=== PATIENT | female | born 1945 | race Caucasian/White ===

== ENCOUNTER 2017-03-25 03:44 | Inpatient (IN) | payer OTHER ==
[~2017-03-25] VITALS: Ht 165.1 cm; Wt 83.8 kg
[~2017-03-25 03:44] MED LIST: ACET-1257 PO; ATEN50TA8 PO; ATOR-22 PO; CALC500C3 PO; FERR325T51 PO; LEVO100T7 PO; MULT-506 PO; ORTHO WARFARIN NOMOGRAM; ULT50X PO
--- NOTE | 2017-03-25 04:35 | EMERGENCY ROOM VISIT NOTE ---
History Report prepared by Gilbert: Emmanuel Machado Under the Supervision of: Dr. Yusra Bailey D.O. First contact with patient: 03:53 Chief Complaint: SYNCOPE (NEAR SYNCOPE) Stated Complaint: NEAR SYNCOPE Nursing Triage Summary: PT presents with near syncopal episode. PT states this has happened before. PT became very tired at work and sat down, laid head down. PT was very dizzy states "I was close to passing out, so I sat down" Pt did not vomit, PT denies CP or SOB. PERRL, face symmetrical, PT speech clear and articulate. no distress noted. BP is 130 systolic at this time. History of Present Illness The patient is a 71 year old female who presents to the Emergency Room with complaints a near syncope episode prior to arrival . She has associated symptoms of lightheadedness and dizziness. She states the near syncope episode occurred while she was at work. Patient works at [employer]. She states she "started to see spots" and decided to sit down. She denies vomiting, nausea , or chills. She states that she felt fine all day today. Patient states she has a history of these symptoms. She states that 2 weeks ago she had a near syncope episode and the ambulance came. However, she was not transported to ER but instead worked the rest of her shift without any problems. In addition, she stated she had similar symptoms over the summer where she was diagnosed with dehydration and a UTI. She states she currently takes Synthroid and a blood pressure medication. She states she has taken the same blood pressure medication for the past 2 months. She states she has not taken any new medications recently. Patient states she occasionally feels PVCs in her chest. She states she has never been told that she has PVCs in her chest before. She denies any new neurological symptoms. She adds that her glucose levels were not taken during the near syncope episode. Patient states that she ate wings and chili fries 10 hours ago. She states that she usually eats apples and crackers while at work. She adds that she has stayed hydrated. Source of History: patient Onset: prior to arrival Position: other (Global) Associated Symptoms: No chills, No nausea, No vomiting Note: Patient has lightheadedness and dizziness. Review of Systems See HPI for pertinent positives & negatives. A total of 10 systems reviewed and were otherwise negative. Past Medical & Surgical Medical Problems: (1) Chronic anemia (2) CKD (chronic kidney disease) stage 3, GFR 30-59 ml/min (3) Degenerative joint disease (DJD) of hip (4) Dyslipidemia (5) HTN (hypertension) (6) Hypothyroidism Surgical Problems: (1) H/O arthroscopy of knee (2) History of total hysterectomy Family History No pertinent family history. Social History Smoking Status: Never Smoker Drug Use: none Occupation Status: employed Current/Historical Medications Scheduled Atorvastatin (Lipitor), 20 MG PO QAM Calcium Carbonate (Tums), 1 TAB PO PRN Ferrous Sulfate (Iron Supplement), 325 MG PO QAM Levothyroxine Sodium (Levothyroxine Sodium), 100 MCG PO QAM Lisinopril (Prinivil), 5 MG PO DAILY Multivitamin (Multivitamin), 1 TAB PO QAM Ranitidine (Zantac), 150 MG PO BID Scheduled PRN Tramadol HCl (Tramadol HCl), 50 MG PO Q4H PRN for Pain Allergies Coded Allergies: CI Pigment Blue 63 (Unverified Allergy, Severe, FACE SWELLING, 03/25/17) Duloxetine (Unverified Allergy, Severe, FACE SWELLING, 03/25/17) Diclofenac (Verified Adverse Reaction, Intermediate, 'affects my kidneys' per pt, 03/25/17) Physical Exam Vital Signs Date Time Temp Pulse Resp B/P (MAP) Pulse Ox O2 Delivery O2 Flow Rate FiO2 03/25/17 06:24 84 16 95 03/25/17 06:09 82 17 96 03/25/17 06:01 124/78 03/25/17 05:54 82 12 96 03/25/17 05:39 86 16 96 03/25/17 05:34 81 20 98 03/25/17 05:19 86 20 96 03/25/17 05:04 87 16 97 03/25/17 05:01 129/58 03/25/17 04:55 136/70 03/25/17 04:34 82 20 96 03/25/17 04:29 86 16 95 03/25/17 04:14 89 12 98 03/25/17 04:01 112/79 03/25/17 03:59 86 19 97 Room Air 03/25/17 03:55 98 Room Air 03/25/17 03:52 91 03/25/17 03:51 36.5 95 18 130/73 96 Room Air 03/25/17 03:49 130/73 Physical Exam HEENT: Head - normocephalic and atraumatic Pupils are equal, round, and reactive to light. Extraocular eye muscles are intact, and sclera are anicteric. Nose - moist nasal mucosa without discharge. Mouth - moist buccal mucosa. Oropharynx is nonerythematous and there is no tonsillar exudate or edema noted. Neck: Supple; no JVD, nuchal rigidity, cervical lymphadenopathy, or auscultated bruits. Heart: Regular rate and rhythm. There is a normal S1 and S2 with no murmurs, clicks, or gallops appreciated. Lungs: Clear to auscultation bilaterally with no wheezes, rales, or rhonchi. Abdomen: Soft, completely nontender, nondistended, with good bowel sounds. There are no palpable pulsatile masses or hepatosplenomegaly. There is no guarding, rigidity, or rebound noted. Extremities: No evidence of cyanosis, clubbing, or edema. There are easily palpable peripheral pulses. Skin: warm and dry with good turgor and no rashes. Medical Decision & Procedures ER Provider Diagnostic Interpretation: Radiology results as stated below per my review and the radiologist's interpretation: CT HEAD: No acute intracranial hemorrhage. No evidence of intracranial mass, extra-axial fluid collection, or acute territorial infarct. Mild white matter hypodensities, which are nonspecific but most likely related to chronic small vessel ischemic changes. Visualized paranasal sinuses and mastoid air cells are clear. Laboratory Results 03/25/17 03:30 03/25/17 03:30 Test 03/25/17 03:30 03/25/17 05:30 Red Blood Count 4.25 M/uL (4.2-5.4) Mean Corpuscular Volume 90.4 fL (80-100) Mean Corpuscular Hemoglobin 29.4 pg (25-34) Mean Corpuscular Hemoglobin Concent 32.6 g/dl (32-36) RDW Standard Deviation 44.9 fL (36.4-46.3) RDW Coefficient of Variation 13.6 % (11.5-14.5) Mean Platelet Volume 11.3 fL (7.4-10.4) Anion Gap 10.0 mmol/L (3-11) Est Creatinine Clear Calc Drug Dose 18.9 ml/min Estimated GFR () 18.4 Estimated GFR (Non- 15.9 BUN/Creatinine Ratio 13.0 (10-20) Calcium Level 9.7 mg/dl (8.5-10.1) Magnesium Level 2.2 mg/dl (1.8-2.4) Total Bilirubin 0.4 mg/dl (0.2-1) Direct Bilirubin 0.1 mg/dl (0-0.2) Aspartate Amino Transf (AST/SGOT) 24 U/L (15-37) Alanine Aminotransferase (ALT/SGPT) 33 U/L (12-78) Alkaline Phosphatase 105 U/L (45-117) Troponin I < 0.015 ng/ml (0-0.045) Total Protein 7.8 gm/dl (6.4-8.2) Albumin 4.1 gm/dl (3.4-5.0) Thyroid Stimulating Hormone (TSH) 0.456 uIu/ml (0.300-4.500) Urine Color DK YELLOW Urine Appearance CLOUDY (CLEAR) Urine pH 5.0 (4.5-7.5) Urine Specific [place] 1.027 (1.000-1.030) Urine Protein TRACE (NEG) Urine Glucose (UA) NEG (NEG) Urine Ketones TRACE (NEG) Urine Occult Blood NEG (NEG) Urine Nitrite NEG (NEG) Urine Bilirubin NEG (NEG) Urine Urobilinogen NEG (NEG) Urine Leukocyte Esterase MODERATE (NEG) Urine WBC (Auto) >30 /hpf (0-5) Urine RBC (Auto) 0-4 /hpf (0-4) Urine Hyaline Casts (Auto) >30 /lpf (0-5) Urine Epithelial Cells (Auto) >30 /lpf (0-5) Urine Bacteria (Auto) 2+ (NEG) Laboratory results per my review. ECG Indication: syncope Rate (beats per minute): 94 Rhythm: normal sinus Findings: PVC, no acute ischemic change Change: Patients electrocardiogram was interpreted by me. ED Course 0420: The patient was evaluated in room B8. A complete history and physical examination were performed. Nursing notes and previous electronic medical records were reviewed. IV lock was established and labs were drawn as above. A twelve-lead EKG was obtained as described above. 0530: Upon reevaluation, I discussed findings and results will be further evaluated. She verbalized agreement of the treatment plan. [facility] The patient will be evaluated for further management and care. Medical Decision The patient is a 71 year old female who presents to the ED with lightheadedness. Differential diagnosis includes cardiac dysrhythmia, renal failure, UTI, and intracranial process. Lab results show normal TSH, normal LFTs, troponin less 0.015, BUN = 37, creatinine = 2.8, white blood cell count 11.2, and stable H&H. The patient has now had 2 separate episodes of near syncope. The patient's creatinine has significantly increased consistent with acute kidney injury. [facility] and [facility] will evaluate for further care. Medication Reconcilliation Current Medication List: was personally reviewed by me Blood Pressure Screening Patient's blood pressure: Normal blood pressure Blood pressure disposition: Did not require urgent referral Consults Time Called: 0523 Consulting Physician: Dr. Hutchinson Returned Call: 0525 Discussed the patient's case. The patient will be evaluated for further management. Impression Primary Impression: Acute kidney injury Additional Impression: Near syncope Scribe Attestation The scribe's documentation has been prepared under my direction and personally reviewed by me in its entirety. I confirm that the note above accurately reflects all work, treatment, procedures, and medical decision making performed by me. Departure Information Dispostion Being Evaluated By Hospitalist Referrals Glen Bardales M.D. (PCP) Forms HOME CARE DOCUMENTATION FORM, IMPORTANT VISIT INFORMATION Patient Instructions My [facility] Problem Qualifiers
[2017-03-25 04:40] LABS: HEMATOCRIT 38.4 % (37-47); HEMOGLOBIN 12.5 g/dL (12.0-16.0); MEAN CELL VOLUME 90.4 fL (80-100); MEAN CORPUSCULAR HEMOGLOBIN 29.4 pg (25-34); MEAN CORPUSCULAR HGB CONC 32.6 g/dl (32-36); MEAN PLATELET VOLUME 11.3 fL (7.4-10.4); PLATELET COUNT 223 K/uL (130-400); RED CELL DISTRIBUTION WIDTH CV 13.6 % (11.5-14.5); RED CELL DISTRIBUTION WIDTH SD 44.9 fL (36.4-46.3); WHITE BLOOD COUNT 11.24 K/uL (4.8-10.8)
[2017-03-25 04:54] LABS: ALBUMIN 4.1 gm/dl (3.4-5.0); ALT/SGPT 33 U/L (12-78); BLOOD UREA NITROGEN 37 mg/dl (7-18); CALCIUM 9.7 mg/dl (8.5-10.1); CARBON DIOXIDE 25 mmol/L (21-32); CREATININE 2.83 mg/dl (0.60-1.20); GLUCOSE 119 mg/dl (70-99)
[2017-03-25 04:58] LABS: POTASSIUM 4.6 mmol/L (3.5-5.1); SODIUM 140 mmol/L (136-145)
[2017-03-25 04:59] LABS: ALKALINE PHOSPHATASE 105 U/L (45-117); TOTAL PROTEIN 7.8 gm/dl (6.4-8.2)
[2017-03-25 05:03] LABS: AST/SGOT 24 U/L (15-37)
[2017-03-25] MEDS ORDERED: LISI-729 PO (05:03)
[2017-03-25] MEDS ORDERED: ZNTT/150 PO (05:03)
--- NOTE | 2017-03-25 06:11 | DIAGNOSTIC IMAGING REPORT ---
HEAD WITHOUT CONTRAST (CT) CLINICAL HISTORY: 71 years-old Female with near syncope. Acute weakness TECHNIQUE: Multiple axial CT images of the head were obtained without contrast. A dose lowering technique was utilized adhering to the principles of ALARA. CT DOSE: 537.48 mGy.cm COMPARISON: None. FINDINGS: No acute intracranial hemorrhage, midline shift, intracranial mass, hydrocephalus, territorial ischemia or abnormal extra-axial collection. Ill-defined areas of low-attenuation within the periventricular white matter suggests chronic microvascular ischemic changes. The calvarium is intact. The paranasal sinuses, mastoid air cells, and middle ear cavities are clear. IMPRESSION: No acute intracranial abnormality. The above report was generated using voice recognition software. It may contain grammatical, syntax or spelling errors. Electronically signed by: Jeffrey Alanis M.D. 03/25/2017 6:10 AM Dictated Date/Time: 03/25/2017 6:02 AM
[2017-03-25] MEDS ORDERED: SODIUM CHLORIDE 0.9% 1000ML 1,000 ML IV STA (06:42)
--- NOTE | 2017-03-25 06:54 | DIAGNOSTIC IMAGING REPORT ---
CHEST ONE VIEW PORTABLE HISTORY: 71 years-old Female renal failure acute renal failure with near syncopal event COMPARISON: Chest radiograph 12/14/2016 TECHNIQUE: Portable AP view of the chest FINDINGS: Cardiomediastinal and hilar silhouettes are within normal limits. There is no pneumothorax, pleural effusion, focal airspace consolidation or overt pulmonary edema. Linear subsegmental atelectasis/scarring of the lateral left lung base. Bones of the chest appear grossly intact. Previously noted cholelithiasis not imaged. IMPRESSION: No acute process. The above report was generated using voice recognition software. It may contain grammatical, syntax or spelling errors. Electronically signed by: Jeffrey Alanis M.D. 03/25/2017 6:53 AM Dictated Date/Time: 03/25/2017 6:52 AM
[2017-03-25] MEDS ORDERED: CEFTRIAXONE SOD INJ 1 GM ADDVIAL IV STA (07:40)
[2017-03-25] MEDS ORDERED: ACETAMINOPHEN 325 MG TAB PO PRN (07:45)
[2017-03-25] MEDS ORDERED: TRAMADOL HCL 50 MG TAB PO PRN (07:45)
[2017-03-25] MEDS ORDERED: PROCHLORPERAZINE INJ 5 MG in SYRINGE 4 ML IV PRN (07:45)
[2017-03-25 08:55] VITALS: BP 135/81; PULSE 87; TEMP 36.5; O2SAT 96; O2SAT 97; Ht 165.1 cm; Wt 83.8 kg
[2017-03-25] MEDS: CEFTRIAXONE SOD INJ 1 GM in DEXTROSE 5% ADD-VANTAGE 50ML 50 ML IV SCH (10:57)
--- NOTE | 2017-03-25 11:18 | HISTORY & PHYSICAL EXAMINATION ---
DATE OF ADMISSION: 03/25/2017 PRIMARY CARE DOCTOR: Dr. Bardales CHIEF COMPLAINT: Near syncope. HISTORY OF PRESENT ILLNESS: History obtained from patient and records. Medical history is significant for hypertension, chronic anemia (baseline hemoglobin of 12), CKD with baseline creatinine of 1.3-1.4 as per records, hyperlipidemia, hypothyroidism, and arthritis. Recent confinement in 2015 for a right hip surgery. 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 Broke into sweats. Blood pressure initially 60/40 and later 90/50. Refused ER admission. Patient was to follow up with her PCP. She was at work again last night when episode reccurred. Denies chest pain, shortness of breath. Denies bladder discomfort. No fever, no chills. Patient thinks she drinks enough water. MEDICAL HISTORY: As above. SURGERIES: She has had knee surgery, hysterectomy, and hip surgery. HOME MEDICATIONS: Include lisinopril, Lipitor, levothyroxine, Tylenol. ALLERGIES: CYMBALTA AND DICLOFENAC. FAMILY HISTORY: Heart disease, diabetes, stroke PERSONAL AND SOCIAL HISTORY: Nonsmoker. No chronic intake of alcoholic beverages. STEAM POWERPLANT SUPERVISOR . REVIEW OF SYSTEMS: As per HPI, all 10 systems reviewed, all other ROS negative. PHYSICAL EXAMINATION: VITAL SIGNS: Blood pressure was noted to be 124/70, pulse rate 82, RR 12, temperature 36.5, and sats 98% on room air. Orthostatic vitals were abnormal. GENERAL: Noted to be pleasant, no respiratory distress. Looks younger for stated age. Obese. SKIN: Pallor and warm. HEENT: [place] palpebral conjunctivae. Dry mucosa. No ptosis. NECK: Supple, short, and nontender. LUNGS: Clear to auscultation. Nontender. HEART: RRR. No murmur. ABDOMEN: Some distention. Nontender. EXTREMITIES: No LE edema. No gross deformities, no tenderness NEUROLOGIC: Coherent. No gross focality. LABS: Hemoglobin was noted to be 12.5, WBC 11, platelets noted to be 223. Sodium 140, potassium 4.6, chloride 105, CO2 of 25, BUN 37, creatinine 2.8 glucose 119. Troponin normal. UA, trace ketones noted. WBC est positive, epithelial cells CT head, no acute pathology. Chest x-ray showed no acute process. EKG as per my interpretation rate 95, NSR, LVH, PVCs ASSESSMENT: 1. ARF on CRI Clinical dehydration Possible UTI (hx similar UTI symptoms in the past without usual symptoms as per patient), patient not septic. 2. Near syncope 2 to above, orthostasis 3. Hypertension, blood pressure on the lower side. 4. Chronic anemia secondary to CKD, hemoglobin better than baseline Likely from hemoconcentration. PLAN: F Monitor creatinine response to IV fluids Appropriate to hold home ACEinhibitor for now. Renal ultrasound, Nephrology consult (patient known to Dr. De La Cruz) if kidney function does not improve with initial intervention. Follow urine CS, IV Ceftriaxone for now. DVT prophylaxis, Heparin subQ. Full code. MTDD
[2017-03-25 12:37] LABS: INR 0.9 (0.9-1.1)
[2017-03-25] MEDS ORDERED: SODIUM CHLORIDE 0.9% 1000ML 1,000 ML IV SCH ×2 (13:00→16:45)
[2017-03-25 14:34] VITALS: BP 115/72; PULSE 90; TEMP 37; O2SAT 95
[2017-03-25] MEDS: ATORVASTATIN 20 MG TAB PO SCH (15:26)
[2017-03-25] MEDS: FERROUS SULFATE 325 MG TAB PO SCH (15:26)
[2017-03-25] MEDS: MULTIVITAMIN TAB PO SCH (15:26)
[2017-03-25] MEDS: LEVOTHYROXINE 100 MCG TAB PO SCH (15:27)
[2017-03-25] MEDS: RANITIDINE HCL 150 MG TAB PO SCH (15:27)
[2017-03-25] MEDS: HEPARIN SOD 5000 UNIT/0.5 ML CARP SQ SCH ×2 (15:35→22:00)
--- NOTE | 2017-03-25 15:48 | Progress Note ---
Medicine Progress Note Date & Time of Visit: Mar 25, 2017 at 10:21. Subjective Pt was seen and examined Lying in bed with no distress Pt said that she feels fine She wanted to go home today Denies any chest pain, palpitation, dizziness and SOB Objective Last 8 Hrs Date Time Temp Pulse Resp B/P (MAP) Pulse Ox O2 Delivery O2 Flow Rate FiO2 03/25/17 14:34 37.0 90 16 115/72 (86) 95 Room Air 03/25/17 08:55 36.5 87 16 135/81 (99) 96 Room Air 03/25/17 08:55 36.5 87 16 135/81 97 Room Air 03/25/17 08:20 86 16 162/82 97 03/25/17 08:17 86 16 162/82 97 Room Air Physical Exam: General- No acute distress Head- atraumatic Eyes- PERRL, EOMI ENT- oropharynx clear Neck- supple, no JVD Lungs- No wheezing Heart- regular rhythm, No murmur Abdomen- normal bowel sounds, soft Extremities- no pretibial edema, no calf tenderness Neuro- alert, oriented x 3; PERRL, EOMI; no facial palsy Skin- warm & dry Laboratory Results: Last 24 Hours Test 03/25/17 03:30 03/25/17 05:30 03/25/17 12:17 White Blood Count 11.24 K/uL Red Blood Count 4.25 M/uL Hemoglobin 12.5 g/dL Hematocrit 38.4 % Mean Corpuscular Volume 90.4 fL Mean Corpuscular Hemoglobin 29.4 pg Mean Corpuscular Hemoglobin Concent 32.6 g/dl RDW Standard Deviation 44.9 fL RDW Coefficient of Variation 13.6 % Platelet Count 223 K/uL Mean Platelet Volume 11.3 fL Sodium Level 140 mmol/L Potassium Level 4.6 mmol/L Chloride Level 105 mmol/L Carbon Dioxide Level 25 mmol/L Anion Gap 10.0 mmol/L Blood Urea Nitrogen 37 mg/dl Creatinine 2.83 mg/dl Est Creatinine Clear Calc Drug Dose 18.9 ml/min Estimated GFR () 18.4 Estimated GFR (Non- 15.9 BUN/Creatinine Ratio 13.0 Random Glucose 119 mg/dl Calcium Level 9.7 mg/dl Magnesium Level 2.2 mg/dl Total Bilirubin 0.4 mg/dl Direct Bilirubin 0.1 mg/dl Aspartate Amino Transf (AST/SGOT) 24 U/L Alanine Aminotransferase (ALT/SGPT) 33 U/L Alkaline Phosphatase 105 U/L Total Creatine Kinase 33 U/L Troponin I < 0.015 ng/ml Total Protein 7.8 gm/dl Albumin 4.1 gm/dl Thyroid Stimulating Hormone (TSH) 0.456 uIu/ml Urine Color DK YELLOW Urine Appearance CLOUDY Urine pH 5.0 Urine Specific [place] 1.027 Urine Protein TRACE Urine Glucose (UA) NEG Urine Ketones TRACE Urine Occult Blood NEG Urine Nitrite NEG Urine Bilirubin NEG Urine Urobilinogen NEG Urine Leukocyte Esterase MODERATE Urine WBC (Auto) >30 /hpf Urine RBC (Auto) 0-4 /hpf Urine Hyaline Casts (Auto) >30 /lpf Urine Epithelial Cells (Auto) >30 /lpf Urine Bacteria (Auto) 2+ Prothrombin Time 9.8 SECONDS Prothromb Time International Ratio 0.9 Date/Time Source Procedure Growth Status 03/25/17 05:30 Urine , Clean Catch Urine Culture Pending Received Assessment & Plan Recurrent Near Syncope Possible related to Orthostatic hypotension vs dehydration CT head showed no acute intracranial abnormality. EKG showed sinus rhythm with PVC troponin on admission negative Denies any symptoms Received 2 liter NS Lisinopril on hold PT/OT Will get an echo in am Dobutamine stress echo was negative for inducible ischemia back in 2012 Acute kidney injury on CKD stage 3 Creatine was 1.4 on 01/18 Creatine on admission 2.2 Hold lisinopril will continue gentle hydration Check BMP in am Abnormal UA Denies any urinary symptoms WBC mild elevated Starting on Rocephin urine cx pending Hypothyroidism TSH WNL Continue levothyroxine DVT px on Heparin subq CODE STATUS FULL CODE Current Inpatient Medications: Current Inpatient Medications Medications (Trade) Dose Ordered Sig/Awa Route Start Time Stop Time Status Last Admin Dose Admin Heparin Sodium (Porcine) (Heparin Sq 5000 Unit/0.5ml) 5,000 unit Q8 SQ 03/25/17 14:00 04/24/17 13:59 Acetaminophen (Tylenol Tab) 650 mg Q4H PRN PO 03/25/17 07:45 04/24/17 07:44 Tramadol HCl (Ultram Tab) 25 mg Q6H PRN PO 03/25/17 07:45 04/24/17 07:44 Prochlorperazine Edisylate 5 mg/ Syringe 5 ml @ 5 mls/min Q6H PRN IV 03/25/17 07:45 04/24/17 07:44 Ceftriaxone Sodium 1 gm/ Dextrose 50 ml @ 100 mls/hr DAILY@0800 IV 03/25/17 09:00 04/04/17 07:59 03/25/17 10:57 100 MLS/HR Atorvastatin Calcium (Lipitor Tab) 20 mg QAM PO 03/25/17 09:00 04/24/17 08:59 Levothyroxine Sodium (Synthroid Tab) 100 mcg DAILYBB PO 03/25/17 09:00 04/24/17 08:59 Multivitamins (Multivitamin Tab) 1 tab QAM PO 03/25/17 09:00 04/24/17 08:59 Ranitidine HCl (zANTac TAB) 150 mg DAILY PO 03/25/17 09:00 04/24/17 08:59 Ferrous Sulfate (Feosol Tab) 325 mg QAM PO 03/25/17 09:00 04/24/17 08:59 Sodium Chloride 1,000 ml @ 100 mls/hr Q10H IV 03/25/17 13:00 03/26/17 12:59 03/25/17 13:35 100 MLS/HR
[2017-03-25 20:00] VITALS: O2SAT 95
[2017-03-25 22:55] VITALS: BP 125/76; PULSE 87; TEMP 36.6; O2SAT 97
[2017-03-26 00:54] VITALS: O2SAT 95
[2017-03-26] MEDS: HEPARIN SOD 5000 UNIT/0.5 ML CARP SQ SCH ×2 (06:00→13:16)
[2017-03-26] MEDS: LEVOTHYROXINE 100 MCG TAB PO SCH (06:19)
[2017-03-26 08:14] LABS: BASO % 0.5 %; BASO ABS # 0.03 K/uL (0-0.2); EOS % 3.4 %; EOS ABS # 0.19 K/uL (0-0.5); HEMATOCRIT 35.6 % (37-47); HEMOGLOBIN 11.4 g/dL (12.0-16.0); LYMPH % 49.5 %; LYMPH ABS # 2.75 K/uL (1.2-3.4); MEAN CORPUSCULAR HEMOGLOBIN 29.2 pg (25-34); MEAN PLATELET VOLUME 10.8 fL (7.4-10.4); MONO % 7.2 %; NEUT % 39.4 %; NEUT ABS # 2.19 K/uL (1.4-6.5); PLATELET COUNT 179 K/uL (130-400); RED CELL DISTRIBUTION WIDTH CV 13.7 % (11.5-14.5); RED CELL DISTRIBUTION WIDTH SD 45.5 fL (36.4-46.3); WHITE BLOOD COUNT 5.56 K/uL (4.8-10.8)
[2017-03-26 08:17] VITALS: BP 134/79; PULSE 75; TEMP 36.5; O2SAT 96
[2017-03-26 08:47] LABS: CALCIUM 9.2 mg/dl (8.5-10.1); CREATININE 1.09 mg/dl (0.60-1.20); POTASSIUM 4.4 mmol/L (3.5-5.1)
[2017-03-26] MEDS: RANITIDINE HCL 150 MG TAB PO SCH (08:56)
[2017-03-26] MEDS: MULTIVITAMIN TAB PO SCH (08:56)
[2017-03-26] MEDS: CEFTRIAXONE SOD INJ 1 GM in DEXTROSE 5% ADD-VANTAGE 50ML 50 ML IV SCH (08:56)
[2017-03-26] MEDS: ATORVASTATIN 20 MG TAB PO SCH (08:56)
[2017-03-26] MEDS: FERROUS SULFATE 325 MG TAB PO SCH (08:56)
--- NOTE | 2017-03-26 10:50 | ECHOCARDIOGRAM REPORT ---
*NOTICE TO RECEIVING CONSTITUTION PARTY AGENCY This information is strictly Confidential and protected under [place] law. [place] law prohibits you from making any further disclosure of this information unless further disclosure is expressly permitted by the written consent of the person to whom it pertains or is authorized by law. A general authorization for the release of medical or other information is not sufficient for this purpose. Hospital accepts no responsibility if the information is made available to any other person, INCLUDING THE PATIENT. Interpretation Summary * Name: RADHA GREEN Study Date: 03/26/2017 06:19 AM BP: 125/76 mmHg * Patient Location: .[id number]\1 HR: 87 * : 1945 (M/d/yyyy) Gender: Female Height: 65 in * Age: 71 yrs Ethnicity: [place] Weight: 184 lb * Ordering Physician: Ge Foreman * Referring Physician: Self, Referred * Performed By: Beni Saucedo RCS * * Reason For Study: Recurrent Near Syncope * BSA: 1.9 m2 * -- Conclusions -- * Small, underfilled, LV chamber with mild concentric LVH. * Hyperdynamic LV systolic function, EF >70%. * No segmental left ventricular wall motion abnormalities are noted. * Grade I diastolic dysfunction. * Mild tricuspid regurgitation. Procedure Details * A complete two-dimensional transthoracic echocardiogram was performed (2D, M-mode, Doppler and color flow Doppler). Left Ventricle * The left ventricular cavity is small. * There is mild concentric left ventricular hypertrophy. * Ejection Fraction = >70 %. * The left ventricle is hyperdynamic. * No segmental left ventricular wall motion abnormalities are noted. * The left ventricular wall motion is normal. Right Ventricle * The right ventricular cavity size is normal (basal dimension <4.2 cm in right ventricular apical 4-chamber view). * The right ventricular systolic function is normal as assessed by tricuspid annular plane systolic excursion (TAPSE) (normal >1.5 cm). Atria * The left atrial size is normal. * Right atrial size is normal. * No ASD detected; PFO is not assessed. Mitral Valve * The mitral valve is normal in structure and function. Tricuspid Valve * The tricuspid valve anatomy is normal. * There is no tricuspid stenosis. * There is mild tricuspid regurgitation. Aortic Valve * The aortic valve is normal in structure and function. Pulmonic Valve * The pulmonary valve is not well seen, but the Doppler examination is normal without significant regurgitation or stenosis. Great Vessels * The aortic root and proximal ascending aorta are normal sized. Pericardium/Pleural * There is no pericardial effusion. Left Ventricular Diastolic Function * Grade I diastolic dysfunction, (abnormal relaxation pattern). MMode 2D Measurements and Calculations IVSd 1.1 cm IVSs 1.6 cm LVIDd 3.9 cm LVIDs 2.5 cm LVPWd 1.1 cm LVPWs 1.7 cm IVS/LVPW 0.93 FS 36.1 % EDV(Teich) 65.6 ml ESV(Teich) 22.0 ml EF(Teich) 66.5 % EDV(cubed) 58.9 ml ESV(cubed) 15.4 ml EF(cubed) 74.0 % % IVS thick 49.1 % % LVPW thick 50.4 % LV mass(C)d 139.0 grams LV mass(C)dI 72.8 grams/m\S\2 LV mass(C)s 147.6 grams LV mass(C)sI 77.3 grams/m\S\2 SV(Teich) 43.6 ml SI(Teich) 22.8 ml/m\S\2 SV(cubed) 43.6 ml SI(cubed) 22.8 ml/m\S\2 asc Aorta Diam 3.3 cm EDV(MOD-sp4) 112.6 ml ESV(MOD-sp4) 44.2 ml EF(MOD-sp4) 60.8 % EDV(MOD-sp2) 89.6 ml ESV(MOD-sp2) 37.0 ml EF(MOD-sp2) 58.7 % SV(MOD-sp4) 68.4 ml SI(MOD-sp4) 35.8 ml/m\S\2 SV(MOD-sp2) 52.6 ml SI(MOD-sp2) 27.5 ml/m\S\2 Doppler Measurements and Calculations MV E max andi 84.2 cm/sec MV A max andi 84.9 cm/sec MV E/A 0.99 MV P1/2t max andi 97.1 cm/sec MV P1/2t 63.4 msec MVA(P1/2t) 3.5 cm\S\2 MV dec slope 448.2 cm/sec\S\2 MV dec time 0.23 sec Ao V2 max 108.1 cm/sec Ao max PG 4.7 mmHg Ao max PG (full) 1.4 mmHg LV V1 max PG 3.3 mmHg LV V1 max 90.7 cm/sec PA V2 max 88.6 cm/sec PA max PG 3.1 mmHg TR max andi 228.1 cm/sec
[2017-03-26 11:57] VITALS: BP 118/74; PULSE 83; TEMP 36.8; O2SAT 94
[2017-03-26 13:16] VITALS: BP 118/74; PULSE 83; TEMP 36.8; O2SAT 94
--- NOTE | 2017-03-26 14:41 | Progress Note ---
Medicine Progress Note Date & Time of Visit: Mar 26, 2017 at 14:28. Subjective Pt was seen and examined Lying in bed with no distress Pt said that she feels fine Denies any dizziness, palpitation, dizziness and SOB Objective Last 8 Hrs Date Time Temp Pulse Resp B/P (MAP) Pulse Ox O2 Delivery O2 Flow Rate FiO2 03/26/17 13:16 36.8 83 18 94 Room Air 03/26/17 11:57 36.8 83 18 118/74 (89) 94 Room Air 03/26/17 08:17 36.5 75 16 134/79 (97) 96 Room Air 03/26/17 08:00 Room Air Physical Exam: General- No acute distress Head- atraumatic Eyes- PERRL, EOMI ENT- oropharynx clear Neck- supple, no JVD Lungs- No wheezing Heart- regular rhythm, No murmur Abdomen- normal bowel sounds, soft Extremities- no pretibial edema, no calf tenderness Neuro- alert, oriented x 3; PERRL, EOMI; no facial palsy Skin- warm & dry Laboratory Results: Last 24 Hours Test 03/26/17 07:50 White Blood Count 5.56 K/uL Red Blood Count 3.91 M/uL Hemoglobin 11.4 g/dL Hematocrit 35.6 % Mean Corpuscular Volume 91.0 fL Mean Corpuscular Hemoglobin 29.2 pg Mean Corpuscular Hemoglobin Concent 32.0 g/dl Platelet Count 179 K/uL Mean Platelet Volume 10.8 fL Neutrophils (%) (Auto) 39.4 % Lymphocytes (%) (Auto) 49.5 % Monocytes (%) (Auto) 7.2 % Eosinophils (%) (Auto) 3.4 % Basophils (%) (Auto) 0.5 % Neutrophils # (Auto) 2.19 K/uL Lymphocytes # (Auto) 2.75 K/uL Monocytes # (Auto) 0.40 K/uL Eosinophils # (Auto) 0.19 K/uL Basophils # (Auto) 0.03 K/uL RDW Standard Deviation 45.5 fL RDW Coefficient of Variation 13.7 % Immature Granulocyte % (Auto) 0.0 % Immature Granulocyte # (Auto) 0.00 K/uL Sodium Level 141 mmol/L Potassium Level 4.4 mmol/L Chloride Level 109 mmol/L Carbon Dioxide Level 24 mmol/L Anion Gap 8.0 mmol/L Blood Urea Nitrogen 24 mg/dl Creatinine 1.09 mg/dl Est Creatinine Clear Calc Drug Dose 49.1 ml/min Estimated GFR () 58.3 Estimated GFR (Non- 50.3 BUN/Creatinine Ratio 21.7 Random Glucose 87 mg/dl Calcium Level 9.2 mg/dl Assessment & Plan Recurrent Near Syncope Possible related to Orthostatic hypotension vs dehydration CT head showed no acute intracranial abnormality. EKG showed sinus rhythm with PVC troponin on admission negative Denies any symptoms Received 2 liter NS Lisinopril on hold PT/OT Dobutamine stress echo was negative for inducible ischemia back in 2012 ECHO done -- Conclusions -- * Small, underfilled, LV chamber with mild concentric LVH. * Hyperdynamic LV systolic function, EF >70%. * No segmental left ventricular wall motion abnormalities are noted. * Grade I diastolic dysfunction. * Mild tricuspid regurgitation. Acute kidney injury on CKD stage 3 Creatine was 1.4 on 01/18 Creatine on admission 2.2 Hold lisinopril will continue gentle hydration Check BMP in am UTI Denies any urinary symptoms WBC trending down WNL On Rocephin day 2 urine cx positive for alpha strep. not enterococcus > 120084 CFU Will do keflex for 3 more days Hypothyroidism TSH WNL Continue levothyroxine DVT px on Heparin subq CODE STATUS FULL CODE Disposition Discharge home today Follow up with Dr. Bardales on 04/02 @ 11:05 Current Inpatient Medications: Current Inpatient Medications Medications (Trade) Dose Ordered Sig/Awa Route Start Time Stop Time Status Last Admin Dose Admin Heparin Sodium (Porcine) (Heparin Sq 5000 Unit/0.5ml) 5,000 unit Q8 SQ 03/25/17 14:00 04/24/17 13:59 03/25/17 15:35 5,000 UNIT Acetaminophen (Tylenol Tab) 650 mg Q4H PRN PO 03/25/17 07:45 04/24/17 07:44 Tramadol HCl (Ultram Tab) 25 mg Q6H PRN PO 03/25/17 07:45 04/24/17 07:44 03/26/17 06:19 25 MG Prochlorperazine Edisylate 5 mg/ Syringe 5 ml @ 5 mls/min Q6H PRN IV 03/25/17 07:45 04/24/17 07:44 Ceftriaxone Sodium 1 gm/ Dextrose 50 ml @ 100 mls/hr DAILY@0800 IV 03/25/17 09:00 04/04/17 07:59 03/26/17 08:56 100 MLS/HR Atorvastatin Calcium (Lipitor Tab) 20 mg QAM PO 03/25/17 09:00 04/24/17 08:59 03/26/17 08:56 20 MG Levothyroxine Sodium (Synthroid Tab) 100 mcg DAILYBB PO 03/25/17 09:00 04/24/17 08:59 03/26/17 06:19 100 MCG Multivitamins (Multivitamin Tab) 1 tab QAM PO 03/25/17 09:00 04/24/17 08:59 03/26/17 08:56 1 TAB Ranitidine HCl (zANTac TAB) 150 mg DAILY PO 03/25/17 09:00 04/24/17 08:59 03/26/17 08:56 150 MG Ferrous Sulfate (Feosol Tab) 325 mg QAM PO 03/25/17 09:00 04/24/17 08:59 03/26/17 08:56 325 MG
[2017-03-26] MEDS ORDERED: CEPH-571 PO ×2 (14:43→14:51)
--- NOTE | 2017-03-26 14:51 | Discharge Instructions ---
Discharge Instructions Date of Service Mar 26, 2017. Admission Reason for Admission: ARF Discharge Discharge Diagnosis / Problem: Near Syncope, Acute kidney injury on CKD stage 3 , UTI Discharge Goals Goal(s): Decrease discomfort, Improve function, Improve disease control Activity Recommendations Activity Limitations: resume your previous activity (as tolerated) . Instructions / Follow-Up Instructions / Follow-Up Follow up with Dr. Bardales on 04/02 @ 11:05 Hold lisinopril for now, if needs to restart please consider to lower the dose to half and monitor renal function Avoid medication that can damage your kidney such as NSAIDs (Motrin, Aleve, Naproxen, Ibuprofen,..) Monitor blood pressure Complete course of Keflex Current Hospital Diet Patient's current hospital diet: AHA Diet (Heart Healthy) Discharge Diet Recommended Diet: AHA Diet (Heart Healthy) Pending Studies Studies pending at discharge: no Medical Emergencies . Who to Call and When: Medical Emergencies: If at any time you feel your situation is an emergency, please call 911 immediately. . Non-Emergent Contact Non-Emergency issues call your: Primary Care Provider Call Non-Emergent contact if: you have a fever, you have any medication questions . . "Provider Documentation" section prepared by Ge Foreman. . VTE Core Measure Inpt VTE Proph given/why not?: Unfractionated heparin SQ
== END 2017-03-26 15:35 | disposition home or self-care (01) | DRG 683 ==
LOC: EDBD 03:44 → C.EDB 03:45 → C.MS2W 07:08 → ENRESERV 07:43 → C.MS4W 13:12 → C.MS2W 13:25
PROVIDERS: ADMIT Internal Medicine; ATTEND Internal Medicine
DX: N17.9 Acute kidney failure, unspecified (principal); N39.0 Urinary tract infection, site not specified; I95.1 Orthostatic hypotension; E86.0 Dehydration; B95.4 Other streptococcus as the cause of diseases classified elsewhere; I12.9 Hypertensive chronic kidney disease with stage 1 through stage 4 chronic kidney disease, or unspecified chronic kidney disease; N18.3 Chronic kidney disease, stage 3 (moderate); E78.5 Hyperlipidemia, unspecified; E03.9 Hypothyroidism, unspecified; D63.1 Anemia in chronic kidney disease; Z51.81 Encounter for therapeutic drug level monitoring; Z79.899 Other long term (current) drug therapy; Z83.3 Family history of diabetes mellitus; Z82.3 Family history of stroke

== ENCOUNTER 2018-03-27 12:12 | Inpatient (IN) ==
[2018-03-27 13:28] LABS: Basophils # (auto) 0.02 K/uL (0-0.2); Basophils % (auto) 0.2 %; Hematocrit (blood only) 32.2 % (37-47); Hemoglobin 10.1 g/dL (12.0-16.0); Immature Granulocytes # (auto) 0.02 K/uL (0.00-0.02); Immature Granulocytes % (auto) 0.2 %; Lymphocytes % (auto) 14.6 %; Mean Corpuscular Hgb Conc 31.4 g/dL (32-36); Monocytes # (auto) 0.92 K/uL (0.11-0.59); Platelet Count 150 K/uL (130-400); RDW Coefficient of Variation 13.8 % (11.5-14.5); RDW Standard Deviation 44.1 fL (36.4-46.3); White Blood Count 10.26 K/uL (4.8-10.8)
[2018-03-27 13:44] LABS: Albumin Level 3.6 gm/dl (3.4-5.0); Aspartate Aminotransferase 64 U/L (15-37); BUN Creatinine Ratio 21.9 (10-20); Blood Urea Nitrogen 37 mg/dl (7-18); Calcium 9.3 mg/dl (8.5-10.1); Carbon Dioxide 22 mmol/L (21-32); Chloride 98 mmol/L (98-107); Est GFR (African American) 33.6; Glucose 110 mg/dl (70-99); Sodium 130 mmol/L (136-145)
[2018-03-27] MEDS ORDERED: MoRPHine SULFATE 4 MG/ML 1 ML CARP\\VIAL IV STA (13:45)
[2018-03-27] MEDS ORDERED: SODIUM CHLORIDE 0.9% 1000ML 1,000 ML IV ONE (13:45)
[2018-03-27] MEDS ORDERED: ACETAMINOPHEN 1,000 MG/100 ML VIAL IV ONE (13:45)
[2018-03-27 13:47] LABS: Alanine Aminotransferase 62 U/L (12-78); Albumin Globulin Ratio 0.9 (0.9-2); Alkaline Phosphatase 146 U/L (45-117); Bilirubin,Total 1.2 mg/dl (0.2-1); Globulin 4.2 gm/dl (2.5-4.0); Total Protein 7.8 gm/dl (6.4-8.2)
[2018-03-27 13:53] LABS: INR 1.1 (0.9-1.1); Partial Thromboplastin Ratio 0.9; Prothrombin Time 10.6 Seconds (9.0-12.0)
[2018-03-27] MEDS ORDERED: HEPARIN SOD 5,000 UNIT/0.5 ML VIAL ONE (16:58)
[2018-03-27] MEDS ORDERED: HEPARIN 25000 UNIT/500 ML D5W IV ONE (16:58)
--- NOTE | 2018-03-27 17:05 | History & Physical Report ---
Date of Service March 27, 2018 Assessment & Plan (1) DVT (deep venous thrombosis): Pt with c/o L leg edema and discomfort left groin with walking x 2 days. Hx L TKA on 01/17/[address] Sal. She was on xarelto 10mg po daily for DVT prophylaxis and appears to have been discharged on xarelto x 14 days however pt states never took after discharge from hospital LLE VENOUS DOPPLER: Extensive occlusive acute deep venous thrombosis extending throughout the left lower extremity extending from the calf veins to at least the common femoral vein In ER pt afebrile, P: 84, R: 20, BP: 115/67, 95% on RA. WBC: 10, Hgb: 10, Plt: 150, BUN: 37, Cr: 1.7 Was given Tylenol 1 gm IV, 1L NSS Heparin IV. Reported ER consulted vascular who felt pt not thrombectomy candidate -heparin IV -monitor -consider possible newer anticoagulation med for discharge -cbc, bmp (2) Hyponatremia: Na: 130. Was given 1L NSS in ER -IVF -monitor electrolytes (3) CKD (chronic kidney disease) stage 3, GFR 30-59 ml/min: Cr: 1.7. baseline 1.1-1.4 -IVF -monitor renal functions -avoid nephrotoxic agents when possible (4) HTN (hypertension): Stable -not on meds currently (5) Dyslipidemia: -continue statin (6) Hypothyroidism: -continue levothyroxine (7) Chronic anemia: Hgb: 10. Was 10.3 on discharge 01/18/18 No active bleeding -monitor H&H (8) Status post left knee replacement: Hx L TKA on 01/17/18. -continue tylenol and percocet prn pain (9) GERD (gastroesophageal reflux disease): -continue TUMS prn indigestion DVT Prophylaxis -Pt with current DVT prior to hospital admission Full code as per discussion with pt Follows with Dr Bardales for routine care Pt was seen with Dr Villalpando. See addendum History of Present Illness Chief Complaint: L Leg edema Primary Care Provider: Glen Bardales MD Pt is 72 y/o F with PMH HTN, HLD, CKD III, hypothyroidism, GERD presented to ER with c/o left leg edema x 2 days. Pt with hx L TKA on 01/17/[address] Sal. She was on xarelto 10mg po daily and appears to have been discharged on xarelto x 14 days however pt states never took after discharge from hospital and is unsure if had Rx. Reports 2 days ago noticed discomfort to L upper inner thigh with walking and noticed edema of entire left leg. Had out patient venous doppler and was referred to ER for extensive occlusive DVT L calf veins to common femoral. Pt with hx superficial DVT after previous R hip replacement. She reports that she has been participating in PT 3 times a week and doing stationary exercise bike at home. Denies recent travel. Denies fever/chills, diaphoresis, N/V/D/C, HAWK, dizziness, syncope, vision changes, neck pain, CP, SOB , orthopnea, palpitations, cough, sore throat, choking, otalgia, rhinorrhea, abdominal pain, paresthesias, extremity weakness, rashes, urinary symptoms. Allergies Allergy/AdvReac Type Severity Reaction Status Date / Time blue dye Allergy Severe FACE Unverified 03/27/18 13:25 SWELLING duloxetine Allergy Severe FACE Verified 03/27/18 13:25 SWELLING capsaicin AdvReac Intermediate 'affects Verified 03/27/18 13:25 my kidneys' per pt diclofenac AdvReac Intermediate 'affects Verified 03/27/18 13:25 my kidneys' per pt Diclopak AdvReac Intermediate 'affects Verified 03/25/17 05:05 my kidneys' per pt Home Medications Home Medications Medication Instructions Recorded Confirmed Type acetaminophen [Tylenol Extra 1,000 mg PO UD PRN 12/21/17 03/27/18 History Strength] atorvastatin 20 mg PO QAM 12/21/17 03/27/18 History calcium carbonate [Tums] 200 mg PO QID PRN 12/21/17 03/27/18 History ferrous sulfate 325 mg PO QAM 12/21/17 03/27/18 History levothyroxine 100 mcg PO QAM 12/21/17 03/27/18 History multivitamin 1 cap PO QAM 12/21/17 03/27/18 History oxycodone-acetaminophen [Percocet] 1 tab PO Q6H PRN 03/27/18 03/27/18 History Past Med/Surg History Medical History GERD (gastroesophageal reflux disease) (Chronic) CONTROLLED Osteoarthritis (Chronic) CKD (chronic kidney disease) stage 3, GFR 30-59 ml/min (Chronic) Chronic anemia (Chronic) Hypothyroidism (Chronic) HTN (hypertension) (Chronic) Dyslipidemia (Chronic) History of superficial phlebitis (Resolved) S/P BRIANNE (2016) Obesity Surgical History History of total hip arthroplasty (Resolved) RIGHT BRIANNE= 01/13/2016= SAB X1 AT [facility] History of hysterectomy (Resolved) History of colonoscopy (Resolved) History of esophagogastroduodenoscopy (EGD) (Resolved) History of arthroscopy (Resolved) RIGHT KNEE Status post left knee replacement (Resolved) History of total hysterectomy (Resolved) H/O arthroscopy of knee (Resolved) "09/2002 Dr. Hobson" Family History Other History of superficial phlebitis Social History Current Living Situation: Alone Feels Safe at Home: Yes Smoking Status: Never smoker Second Hand Exposure: No Hx Alcohol Use: Yes Alcohol type: other Alcohol Intake Frequency: a few times a month Hx Substance Use: No Beliefs That Will Affect Care: None Preferred Language: Mongolian Visual Impairment: No Limitations Review of Systems All systems reviewed & are unremarkable except as noted in HPI & below Physical Exam 2 Vital Signs (Past 24 Hours): Last Vital Signs Temp 36.7 C 03/27/18 12:17 Pulse 81 03/27/18 13:21 Resp 20 03/27/18 12:17 BP 115/67 03/27/18 12:17 Pulse Ox 96 03/27/18 13:21 Physical Exam: General: no distress, WDWN Head: normocephalic, atraumatic Eyes: conjunctiva non-injected, anicteric ENT: normal inspection external ears, nose, mucous membranes moist Neck: supple, trachea midline, non-tender Lungs: clear, no respiratory distress, no wheezing/rhonchi/rales CV: RRR, no murmur Abd: normal BS, soft, non-tender Ext: LLE: +healed surgical incision to anterior knee, +diffuse edema without cyanosis or erythema, no significant tenderness to palpation, distal pulses intact, brisk capillary refill, sensation to light touch intact. Remaining extremities with normal appearance and non-tender Neuro: A&O x 3, no focal deficits noted, normal affect Skin: warm, dry Results & Data Laboratory Results Short CBC 03/27/18 Range/Units 13:15 WBC 10.26 (4.8-10.8) K/uL Hgb 10.1 L (12.0-16.0) g/dL Hct 32.2 L (37-47) % Plt Count 150 (130-400) K/uL BMP 03/27/18 13:15 Sodium 130 L Potassium 4.0 Chloride 98 Carbon Dioxide 22 BUN 37 H Creatinine 1.71 H Glucose 110 H Calcium 9.3 Liver Function 03/27/18 Range/Units 13:15 Total Bilirubin 1.2 H (0.2-1) mg/dl AST 64 H (15-37) U/L ALT 62 (12-78) U/L Alkaline Phosphatase 146 H (45-117) U/L Albumin 3.6 (3.4-5.0) gm/dl Diagnostic Findings LLE VENOUS DOPPLER: IMPRESSION: Extensive occlusive acute deep venous thrombosis extending throughout the left lower extremity extending from the calf veins to at least the common femoral vein. Supervising Physician Co-Signing Physician Notes Attending addendum: She is a 72 y/o F with PMH HTN, HLD, CKD III, hypothyroidism, GERD presented to ER with c/o left leg edema x 2 days.H/O L TKA on 01/17/[address] Sal. She was on xarelto 10mg po daily and appears to have been discharged on xarelto x 14 days however pt states never took after discharge from hospital and is unsure if had Rx. Patient was seen and examined in the emergency room Noticed to have swelling of the left leg with tenderness and pain since Sunday last No history of shortness of breath and/or palpitation Noted to have extensive deep venous thrombosis involving left leg On examination No apparent distress at rest Hemodynamically stable Chest-clear to auscultate bilaterally Heart-S1-S2, regular Abdomen-benign nontender,, no organomegaly Extremities-swelling of the whole left lower leg, with calf and medial thigh tenderness Increasing warmth and minimally decreased movement Admission labs and imaging studies reviewed Has extensive DVT left lower extremity Failed to take Xarelto on discharge following left knee replacement Has been started on intravenous heparin Agree with assessment and plan as outlined above by Amina villalpando
[2018-03-27] MEDS ORDERED: ACETAMINOPHEN 325 MG TAB PO PRN (18:12)
[2018-03-27] MEDS ORDERED: SODIUM CHLORIDE 0.9% 1000ML 1,000 ML IV SCH (18:12)
[2018-03-27] MEDS ORDERED: CALCIUM CARBONATE 500 MG CHEWABLE TAB PO PRN (18:12)
[2018-03-27] MEDS ORDERED: Heparin IV Standard *NO* Bolus SCH (18:24)
[2018-03-27] MEDS: HEPARIN STANDARD DEXTROSE 25,000 UNITS/500 ML IV SCH ×2 (19:20→23:48)
--- NOTE | 2018-03-27 20:06 | Emergency Department Note ---
Entered by Darius Zhu acting as a scribe for Boris Dean MD History of Present Illness General Chief complaint: Swelling/Edema to Extremity Stated complaint: LEFT LEG SWOLLEN AND PAINFUL AFTER TKR Time Seen by Provider: 03/27/18 12:38 Source: patient History of Present Illness Onset (ago): day(s) 2 Location: lower extremity (left) Pain Consistency: + other (progressively worsening) Quality: + other (swelling and pain; DVT showed by ultrasound today) Exacerbated By: + other (walking) Associated symptoms: + shortness of breath (attributed to pain) The patient is a 72 year old female who presents to the Emergency Room after an outpatient ultrasound today showed an extensive DVT in her left leg, from the calf veins to the common femoral vein. She reports that she was seeing Dr. Sal Orthopedic Surgery this morning for swelling of the left leg. The patient had a total left knee replacement in January, and her left leg has been progressively swelling and becoming more painful for the past two days. She notes her pain is exacerbated by walking. She notes some shortness of breath when walking but attributes this to her pain. She states that she is not currently taking a blood thinner. She notes that recently she has been sleeping on her left side and staying in that same position for most of the night. She denies a history of GI bleeding. She also denies a history of DVT but notes a possible clot in a superficial vein in her toe after hip replacement surgery, noting that she was being treated with blood thinners at the time. She notes that she is unable to take aspirin due to kidney problems. Home Medications Home Medications Medication Instructions Recorded Confirmed Type acetaminophen [Tylenol Extra 1,000 mg PO UD PRN 12/21/17 03/27/18 History Strength] atorvastatin 20 mg PO QAM 12/21/17 03/27/18 History calcium carbonate [Tums] 200 mg PO QID PRN 12/21/17 03/27/18 History ferrous sulfate 325 mg PO QAM 12/21/17 03/27/18 History levothyroxine 100 mcg PO QAM 12/21/17 03/27/18 History multivitamin 1 cap PO QAM 12/21/17 03/27/18 History oxycodone-acetaminophen [Percocet] 1 tab PO Q6H PRN 03/27/18 03/27/18 History Allergies Allergy/AdvReac Type Severity Reaction Status Date / Time blue dye Allergy Severe FACE Unverified 03/27/18 13:25 SWELLING duloxetine Allergy Severe FACE Verified 03/27/18 13:25 SWELLING capsaicin AdvReac Intermediate 'affects Verified 03/27/18 13:25 my kidneys' per pt diclofenac AdvReac Intermediate 'affects Verified 03/27/18 13:25 my kidneys' per pt Diclopak AdvReac Intermediate 'affects Verified 03/25/17 05:05 my kidneys' per pt Past Med/Surg History Medical History GERD (gastroesophageal reflux disease) (Chronic) CONTROLLED Osteoarthritis (Chronic) CKD (chronic kidney disease) stage 3, GFR 30-59 ml/min (Chronic) Chronic anemia (Chronic) Hypothyroidism (Chronic) HTN (hypertension) (Chronic) Dyslipidemia (Chronic) History of superficial phlebitis (Resolved) S/P BRIANNE (2016) Obesity Surgical History History of total hip arthroplasty (Resolved) RIGHT BRIANNE= 01/13/2016= SAB X1 AT [facility] History of hysterectomy (Resolved) History of colonoscopy (Resolved) History of esophagogastroduodenoscopy (EGD) (Resolved) History of arthroscopy (Resolved) RIGHT KNEE Status post left knee replacement (Resolved) Limited activity at this time due to new DVT. Increase activity and range of motion of left knee when okay with medicine service. Currently on IV heparin. Will defer to medicine service for further input for anticoagulation as outpatient. Add compression stockings if okay with medicine service. History of total hysterectomy (Resolved) H/O arthroscopy of knee (Resolved) "09/2002 Dr. Hobson" Family History Other History of superficial phlebitis Social History Current Living Situation: Alone Other Information That Helps Us Care for You: No Feels Safe at Home: Yes Safety Concerns: Feels Safe At This Time Smoking Status: Never smoker Second Hand Exposure: No Hx Alcohol Use: Yes Alcohol type: beer Alcohol Intake Frequency: a few times a month Hx Substance Use: No Beliefs That Will Affect Care: None Communication Ability: Effective Review of Systems See HPI for pertinent positives & negatives. and A total of 10 systems reviewed and were otherwise negative Physical Exam Vital Signs Vital Signs - 24 hr 03/27/18 19:38 03/27/18 23:01 03/28/18 07:30 Temperature 37.0 C 37 C Temperature Source Oral Oral Pulse Rate [Finger] 104 H 99 H Pulse Rhythm [Finger] Regular Pulse Strength [Finger] Normal Respiratory Rate 21 16 Respiratory Effort / Characteristics Non-Labored Non-Labored Respiratory Depth Normal Normal Normal Respiratory Pattern Regular Blood Pressure [Right Arm] 116/68 99/65 L Blood Pressure Mean [Right Arm] 84 76 Blood Pressure Position [Right Arm] Lying Lying Pulse Oximetry 99 91 Oxygen Delivery Method Room Air Room Air Room Air 03/28/18 08:20 03/28/18 11:09 03/28/18 14:20 Temperature 37.0 C Temperature Source Oral Pulse Rate [Finger] 110 H Pulse Rhythm [Finger] Pulse Strength [Finger] Respiratory Rate 18 Respiratory Effort / Characteristics Non-Labored Respiratory Depth Normal Respiratory Pattern Regular Blood Pressure [Right Arm] 105/67 113/72 Blood Pressure Mean [Right Arm] 79 85 Blood Pressure Position [Right Arm] Pulse Oximetry 96 Oxygen Delivery Method Room Air GENERAL: Awake, alert, well-appearing, in no distress HENT: Normocephalic, atraumatic. Oropharynx unremarkable. EYES: Normal conjunctiva. Sclera non-icteric. NECK: Supple. No nuchal rigidity. FROM. No JVD. RESPIRATORY: Clear to auscultation. CARDIAC: Regular rate, normal rhythm. Extremities warm and well perfused. Pulses equal. ABDOMEN: Soft, non-distended. No tenderness to palpation. No rebound or guarding. No masses. RECTAL: Deferred. MUSCULOSKELETAL: Chest examination reveals no tenderness. The back is symmetrical on inspection without obvious abnormality. There is no CVA tenderness to palpation. No joint edema. Full ROM at the hip and knee. LOWER EXTREMITIES: There is 2+ edema of the left lower extremity with slight discoloration/blanching compared to the right. FROM at hip and knee. Distal PMS intact. No crepitus. NEURO: Normal sensorium. No sensory or motor deficits noted. SKIN: No rash or jaundice noted. Course 1254: Past medical records reviewed. The patient was evaluated in room C12B, and a complete history and physical examination were performed. 1420: Dr. Quintana Vascular Surgery was paged. 1428: I consulted Anny Boggs PA-C: Vascular Surgery. 1552: I consulted Valentina Newton PA-C: [facility] Hospitalist. She will reevaluate the patient for hospitalization. Consultations Consultation #1: I consulted Anny Boggs PA-C: Vascular Surgeryc. Time: 14:28 Consultation #2: I consulted Valentina Newton PA-C: [facility] Hospitalist. She will reevaluate the patient for hospitalization. Time: 15:52 Administered Medications Atorvastatin Calcium (Lip[facility]) [facility] Stop: 04/27/18 08:59 Last Admin: 03/28/18 08:21 Dose: 20 mg Ferrous Sulfate (Feosol) 325 mg PO [facility] Stop: 04/27/18 08:59 Last Admin: 03/28/18 08:22 Dose: 325 mg Heparin Sodium/Dextrose (Heparin Sodium/Dextrose) 25,000 units in 500 mls @ 25 mls/hr IV .Q20H JACKIE; Protocol Stop: 04/26/18 19:05 Last Titration: 03/28/18 14:57 Dose: Admin: 03/28/18 12:54 Dose: 1,250 units/hr, 25 mls/hr Titration: 03/28/18 12:54 Dose: 1,250 units/hr, 25 mls/hr Titration: 03/28/18 07:20 Dose: 1,250 units/hr, 25 mls/hr Admin: 03/27/18 23:48 Dose: 1,250 units/hr, 25 mls/hr Admin: 03/27/18 19:20 Dose: Not Given Sodium Chloride (Nss 1000ml) 1,000 mls @ 125 mls/hr IV .Q8H [facility] Stop: 03/29/18 08:44 Last Admin: 03/28/18 16:50 Dose: 125 mls/hr Levothyroxine Sodium (Synthroid) 100 mcg PO DAILYBB [facility] Stop: 04/27/18 06:29 Last Admin: 03/28/18 06:34 Dose: 100 mcg Multivitamins (Multivitamin Tab) [facility] Stop: 04/27/18 08:59 Last Admin: 03/28/18 08:22 Dose: 1 tab Oxycodone/Acetaminophen (Percocet 5mg/325mg) 1 tab PO Q6H PRN PRN Reason: Pain Stop: 04/10/18 18:11 Last Admin: 03/28/18 14:35 Dose: 1 tab Admin: 03/28/18 06:36 Dose: 1 tab Admin: 03/27/18 23:14 Dose: 1 tab Discontinued Medications Heparin Sodium (Porcine) (Heparin Sodium (Porcine)) Confirm Administered Dose 10 ,000 units .ROUTE .STK-MED ONE Stop: 03/27/18 16:59 Last Admin: 03/27/18 17:02 Dose: 5,000 units Heparin Sodium/Dextrose () 1 ea N/A NOW STA; Protocol Stop: 03/27/18 15:55 Last Admin: 03/27/18 17:02 Dose: Not Given Heparin Sodium/Dextrose (Heparin Sodium/Dextrose) Confirm Administered Dose 25, 000 units IV .STK-MED ONE Stop: 03/27/18 16:59 Last Admin: 03/27/18 17:03 Dose: 25 ml Sodium Chloride (Nss 1000ml) 1,000 mls @ 999 mls/hr IV .Q1H1M ONE Stop: 03/27/18 14:45 Last Infusion: 03/27/18 14:59 Dose: 0 mls/hr Admin: 03/27/18 13:55 Dose: 999 mls/hr Acetaminophen (Ofirmev) 1,000 mg in 100 mls @ 400 mls/hr IV NOW ONE Stop: 03/27/18 13:59 Last Infusion: 03/27/18 14:10 Dose: 0 mls/hr Admin: 03/27/18 13:55 Dose: 400 mls/hr Sodium Chloride (Nss 1000ml) 1,000 mls @ 80 mls/hr IV .[id number] JACKIE Stop: 03/28/18 06:41 Last Infusion: 03/28/18 09:00 Dose: 0 mls/hr Admin: 03/27/18 19:28 Dose: 80 mls/hr Morphine Sulfate (Morphine Sulfate) 4 mg IV NOW STA Stop: 03/27/18 13:46 Last Admin: 03/27/18 13:55 Dose: 4 mg Medical Decision Making Differential Diagnosis Differential diagnosis: Etiologies such as DVT, musculoskeletal, infection, joint effusion, trauma, lymphedema, idiopathic, CHF, as well as others were entertained. Medical Records Attestation: I reviewed the patient's medical records. Home Medications Current Medication List: was personally reviewed by me Laboratory Data Attestation: I reviewed the patient's lab results. Result diagrams: 03/28/18 05:18 03/28/18 05:18 Lab Results 03/27/18 03/27/18 03/27/18 Range/Units 13:15 13:15 13:15 WBC 10.26 (4.8-10.8) K/uL RBC 3.70 L (4.2-5.4) M/uL Hgb 10.1 L (12.0-16.0) g/dL Hct 32.2 L (37-47) % MCV 87.0 (80-100) fL MCH 27.3 (25-34) pg MCHC 31.4 L (32-36) g/dL RDW Std Deviation 44.1 (36.4-46.3) fL RDW Coeff of Saida 13.8 (11.5-14.5) % Plt Count 150 (130-400) K/uL MPV 11.0 H (7.4-10.4) fL Immature Gran % (Auto) 0.2 % Neut % (Auto) 75.0 % Lymph % (Auto) 14.6 % Elmore % (Auto) 9.0 % Eos % (Auto) 1.0 % Baso % (Auto) 0.2 % Immature Gran # (Auto) 0.02 (0.00-0.02) K/uL Neut # (Auto) 7.70 H (1.4-6.5) K/uL Lymph # (Auto) 1.50 (1.2-3.4) K/uL Elmore # (Auto) 0.92 H (0.11-0.59) K/uL Eos # (Auto) 0.10 (0-0.5) K/uL Baso # (Auto) 0.02 (0-0.2) K/uL PT 10.6 (9.0-12.0) Seconds INR 1.1 (0.9-1.1) APTT 24.0 (21.0-31.0) Seconds PTT Ratio 0.9 Sodium 130 L (136-145) mmol/L Potassium 4.0 (3.5-5.1) mmol/L Chloride 98 (98-107) mmol/L Carbon Dioxide 22 (21-32) mmol/L Anion Gap 10.0 (3-11) BUN 37 H (7-18) mg/dl Creatinine 1.71 H (0.6-1.2) mg/dl Est Cr Clr Drug Dosing Not Reportable Est GFR ( Amer) 33.6 Est GFR (Non-Af Amer) 29.0 BUN/Creatinine Ratio 21.9 H (10-20) Glucose 110 H (70-99) mg/dl Calcium 9.3 (8.5-10.1) mg/dl Total Bilirubin 1.2 H (0.2-1) mg/dl AST 64 H (15-37) U/L ALT 62 (12-78) U/L Alkaline Phosphatase 146 H (45-117) U/L Total Protein 7.8 (6.4-8.2) gm/dl Albumin 3.6 (3.4-5.0) gm/dl Globulin 4.2 H (2.5-4.0) gm/dl Albumin/Globulin Ratio 0.9 (0.9-2) 03/27/18 03/28/18 03/28/18 Range/Units 23:02 05:18 05:18 WBC 8.71 (4.8-10.8) K/uL RBC 3.16 L (4.2-5.4) M/uL Hgb 8.6 L (12.0-16.0) g/dL Hct 27.4 L (37-47) % MCV 86.7 (80-100) fL MCH 27.2 (25-34) pg MCHC 31.4 L (32-36) g/dL RDW Std Deviation 44.3 (36.4-46.3) fL RDW Coeff of Saida 13.8 (11.5-14.5) % Plt Count 153 (130-400) K/uL MPV 11.1 H (7.4-10.4) fL Immature Gran % (Auto) % Neut % (Auto) % Lymph % (Auto) % Elmore % (Auto) % Eos % (Auto) % Baso % (Auto) % Immature Gran # (Auto) (0.00-0.02) K/uL Neut # (Auto) (1.4-6.5) K/uL Lymph # (Auto) (1.2-3.4) K/uL Elmore # (Auto) (0.11-0.59) K/uL Eos # (Auto) (0-0.5) K/uL Baso # (Auto) (0-0.2) K/uL PT (9.0-12.0) Seconds INR (0.9-1.1) APTT 63.3 H* 68.1 H* (21.0-31.0) Seconds PTT Ratio 2.4 2.6 Sodium (136-145) mmol/L Potassium (3.5-5.1) mmol/L Chloride (98-107) mmol/L Carbon Dioxide (21-32) mmol/L Anion Gap (3-11) BUN (7-18) mg/dl Creatinine (0.6-1.2) mg/dl Est Cr Clr Drug Dosing Est GFR ( Amer) Est GFR (Non-Af Amer) BUN/Creatinine Ratio (10-20) Glucose (70-99) mg/dl Calcium (8.5-10.1) mg/dl Total Bilirubin (0.2-1) mg/dl AST (15-37) U/L ALT (12-78) U/L Alkaline Phosphatase (45-117) U/L Total Protein (6.4-8.2) gm/dl Albumin (3.4-5.0) gm/dl Globulin (2.5-4.0) gm/dl Albumin/Globulin Ratio (0.9-2) 03/28/18 Range/Units 05:18 WBC (4.8-10.8) K/uL RBC (4.2-5.4) M/uL Hgb (12.0-16.0) g/dL Hct (37-47) % MCV (80-100) fL MCH (25-34) pg MCHC (32-36) g/dL RDW Std Deviation (36.4-46.3) fL RDW Coeff of Saida (11.5-14.5) % Plt Count (130-400) K/uL MPV (7.4-10.4) fL Immature Gran % (Auto) % Neut % (Auto) % Lymph % (Auto) % Elmore % (Auto) % Eos % (Auto) % Baso % (Auto) % Immature Gran # (Auto) (0.00-0.02) K/uL Neut # (Auto) (1.4-6.5) K/uL Lymph # (Auto) (1.2-3.4) K/uL Elmore # (Auto) (0.11-0.59) K/uL Eos # (Auto) (0-0.5) K/uL Baso # (Auto) (0-0.2) K/uL PT (9.0-12.0) Seconds INR (0.9-1.1) APTT (21.0-31.0) Seconds PTT Ratio Sodium 135 L (136-145) mmol/L Potassium 4.1 (3.5-5.1) mmol/L Chloride 105 (98-107) mmol/L Carbon Dioxide 24 (21-32) mmol/L Anion Gap 6.0 (3-11) BUN 27 H (7-18) mg/dl Creatinine 1.28 H D (0.6-1.2) mg/dl Est Cr Clr Drug Dosing 41.8 Est GFR ( Amer) 47.7 Est GFR (Non-Af Amer) 41.1 BUN/Creatinine Ratio 21.3 H (10-20) Glucose 94 (70-99) mg/dl Calcium 8.3 L (8.5-10.1) mg/dl Total Bilirubin (0.2-1) mg/dl AST (15-37) U/L ALT (12-78) U/L Alkaline Phosphatase (45-117) U/L Total Protein (6.4-8.2) gm/dl Albumin (3.4-5.0) gm/dl Globulin (2.5-4.0) gm/dl Albumin/Globulin Ratio (0.9-2) Blood Pressure Blood Pressure Findings: Normal blood pressure Blood Pressure Disposition: did not require urgent referral MDM Narrative The patient is a pleasant 72-year-old woman with a past medical history of a recent TKR in January, who presents emergency department with worsening left lower extremity swelling and pain since Sunday and subsequent outpatient ultrasound demonstrating DVT and referred to emergency department per hpi. Review of the patient's outpatient ultrasound demonstrates extensive occlusive acute DVT that extends through the left lower extremity from the calf veins to the common femoral vein. On exam the patient has 2+ swelling and slight discoloration/blanching compared to RLE. No evidence of alba dolens or cerulea dolens at this time. WBC within normal limits. H/H 10.1/32.2 similar to recent. Chemistry without acidosis. Creatinine 1.7 within patient's recent range of values in the setting of her CKD. I did review the case with Anny Boggs PA-C, vascular Surgery with Dr. Quintana, and given the patient's age and comorbidities would be unlikely to be a candidate for thrombectomy. However , agrees with admission if the patient's pain or swelling is significant. Findings reviewed with the patient and patient agreeable for recommendation for admission given the extent of her clot in the setting of her CKD. Will begin treatment with heparin. Case was discussed with Luís Ball PA-C, who will evaluate the patient for admission. Impression & Plan DVT (deep venous thrombosis) Critical Care Time I have personally spent 35 minutes of critical care time in the direct management of this patient. This includes bedside care, interpretation of diagnostic studies, and testing, discussion with consultants, patient, and family members, and other required patient management activities. This 35 minutes is in excess of all separately billable procedures. Discharge Plan Visit Data *Final* Discharge Date/Time: 03/27/18 17:56 Chief Complaint: Swelling/Edema to Extremity Stated Complaint: LEFT LEG SWOLLEN AND PAINFUL AFTER TKR ED Provider: Boris Dean Discharge Problem: DVT (deep venous thrombosis) Patient Disposition: Admitted As Inpatient Discharge Instructions Interventions: ED Discharge Assessment Last Done: 03/27/18 17:56 The scribe's documentation has been prepared under my direction and personally reviewed by me in its entirety. I confirm that the note above accurately reflects all work, treatment, procedures, and medical decision making performed by me.
[2018-03-27] MEDS: OXYCODONE/ACETAMINOPHEN 5mg/325mg TAB PO PRN (23:14)
[2018-03-27 23:27] LABS: Partial Thromboplastin Ratio 2.4
[2018-03-27 23:36] LABS: Partial Thromboplastin Time 63.3 Seconds (21.0-31.0)
[2018-03-28 05:38] LABS: Hematocrit (blood only) 27.4 % (37-47); Hemoglobin 8.6 g/dL (12.0-16.0); Mean Corpuscular Hgb Conc 31.4 g/dL (32-36); Mean Corpuscular Volume 86.7 fL (80-100); Mean Platelet Volume 11.1 fL (7.4-10.4); Platelet Count 153 K/uL (130-400); RDW Coefficient of Variation 13.8 % (11.5-14.5); RDW Standard Deviation 44.3 fL (36.4-46.3); Red Blood Count 3.16 M/uL (4.2-5.4); White Blood Count 8.71 K/uL (4.8-10.8)
[2018-03-28 05:55] LABS: Partial Thromboplastin Ratio 2.6
[2018-03-28 05:56] LABS: Partial Thromboplastin Time 68.1 Seconds (21.0-31.0)
[2018-03-28 06:05] LABS: BUN Creatinine Ratio 21.3 (10-20); Calcium 8.3 mg/dl (8.5-10.1); Creatinine Clr Calc Pharmacy 41.8 ml/min; Est GFR (African American) 47.7; Est GFR (Non-African American) 41.1; Potassium 4.1 mmol/L (3.5-5.1)
[2018-03-28] MEDS: LEVOTHYROXINE SODIUM 100 MCG TABLET PO SCH (06:34)
[2018-03-28] MEDS: OXYCODONE/ACETAMINOPHEN 5mg/325mg TAB PO PRN ×2 (06:36→14:35)
[2018-03-28] MEDS: ATORVASTATIN 20 MG TAB PO SCH (08:21)
[2018-03-28] MEDS: MULTIVITAMIN TAB PO SCH (08:22)
[2018-03-28] MEDS: FERROUS SULFATE 325 MG TAB PO SCH (08:22)
--- NOTE | 2018-03-28 09:59 | Hospitalist Progress Note ---
Date of Service March 28, 2018 Assessment & Plan (1) DVT (deep venous thrombosis): Pt admitted with c/o L leg edema and discomfort left groin with walking that started 2 days [employer]. Hx L TKA on 01/17/[address] Sal. Initially pt reported was unsure if she took xarelto 10mg po daily for DVT prophylaxis after surgery, however today pt reports that she believes that she did take it. 03/27/18: LLE VENOUS DOPPLER: Extensive occlusive acute deep venous thrombosis extending throughout the left lower extremity extending from the calf veins to at least the common femoral vein -Vascular consulted yesterday by ER and reports pt would be unlikely a candidate for thrombectomy. -P: 70's-104 with P 99 this am, R: 16-20, BP: 105/67, 91-99% on RA. -Hgb: 8.6 from 10 yesterday, Plt: 153. No reports of bleeding. Pt received IVF -No CP, pleuritic CP or SOB. -On heparin IV -consider possible newer anticoagulation med for discharge -monitor cbc, bmp (2) Hyponatremia: Na: 135 from 130 on admission. Pt had poor oral intake prior to admission -recieved IVF -monitor electrolytes (3) CKD (chronic kidney disease) stage 3, GFR 30-59 ml/min: Cr: 1.28 from 1.7 on admission. Back to baseline. Baseline 1.1-1.4 -pt had poor oral intake previously and probable secondary to dehydration. Received IVF -continue to monitor renal functions -avoid nephrotoxic agents when possible (4) HTN (hypertension): Stable -not on meds currently (5) Dyslipidemia: -continue statin (6) Hypothyroidism: -continue levothyroxine (7) Chronic anemia: Hgb: 8.6. Was 10 on admission and 10.3 on discharge on 01/18/18 Pt had recieved IVF. No active bleeding -monitor H&H (8) Status post left knee replacement: Hx L TKA on 01/17/18. -continue tylenol and percocet prn pain (9) GERD (gastroesophageal reflux disease): Stable -continue TUMS prn indigestion DVT Prophylaxis -Pt with current DVT diagnosed prior to hospital admission and on heparin IV Disposition - anticipate discharge home possibly tomorrow Full code as per discussion with pt Follows with Dr Pilgram for routine care Pt was seen with Dr Ny. See addendum Supervising Physician Co-Signing Physician Notes Attending addendum The patient was seen and examined the medical floor Chief complaint history of some pain in the left lower extremity The swelling has been down She denies any chest pain, shortness of breath or palpitation On examination Stable and Hemodynamically stable Chest-clear to auscultate bilaterally Heart-S1-S2 regular no murmur Abdomen-benign Labs and imaging studies noted Agree with assessment and plan as mentioned above by Amina Ny Subjective Pt seen and examined. F/U LLE DVT. Sitting up in bed eating breakfast. On heparin IV. Reports doing well today, still with pain to left upper inner thigh, groin with ambulation, no pain at rest. Still with edema LLE. Denies any epistaxsis, hematuria, hematochezia or hemoptysis. Denies fever/chills, N/V/D/C, HAWK, dizziness, syncope, CP, SOB, pleuritic CP, palpitations, cough, abdominal pain, paresthesias, rashes, urinary symptoms. Physical Exam 2 Vital Signs (Past 24 Hours): Last Vital Signs Temp 37 C 03/28/18 07:30 Pulse 99 H 03/28/18 07:30 Resp 16 03/28/18 07:30 BP 105/67 03/28/18 08:20 Pulse Ox 91 03/28/18 07:30 Physical Exam: General: no distress, WDWN Head: normocephalic, atraumatic Eyes: conjunctiva non-injected, anicteric ENT: normal inspection external ears, nose, mucous membranes moist Neck: supple, trachea midline, non-tender Lungs: clear, no respiratory distress, no wheezing/rhonchi/rales CV: RRR, no murmur Abd: normal BS, soft, non-tender Ext: LLE: +healed surgical incision to anterior knee, +diffuse edema without cyanosis, pallor, or erythema, no significant tenderness to palpation, extremity soft, distal pulses intact, brisk capillary refill, sensation to light touch intact. Remaining extremities with normal appearance and non-tender Neuro: A&O x 3, no focal deficits noted, normal affect Skin: warm, dry Results & Data Laboratory Results Short CBC 03/27/18 03/28/18 Range/Units 13:15 05:18 WBC 10.26 8.71 (4.8-10.8) K/uL Hgb 10.1 L 8.6 L (12.0-16.0) g/dL Hct 32.2 L 27.4 L (37-47) % Plt Count 150 153 (130-400) K/uL BMP 03/27/18 03/28/18 13:15 05:18 Sodium 130 L 135 L Potassium 4.0 4.1 Chloride 98 105 Carbon Dioxide 22 24 BUN 37 H 27 H Creatinine 1.71 H 1.28 H D Glucose 110 H 94 Calcium 9.3 8.3 L Liver Function 03/27/18 Range/Units 13:15 Total Bilirubin 1.2 H (0.2-1) mg/dl AST 64 H (15-37) U/L ALT 62 (12-78) U/L Alkaline Phosphatase 146 H (45-117) U/L Albumin 3.6 (3.4-5.0) gm/dl _ (1) DVT (deep venous thrombosis) Affected thrombotic vein of extremity: unspecified vein of extremity Chronicity: acute DVT location: lower extremity Laterality: left Qualified Code(s): I82.402 - Acute embolism and thrombosis of unspecified deep veins of left lower extremity
[2018-03-28] MEDS: HEPARIN STANDARD DEXTROSE 25,000 UNITS/500 ML IV SCH (12:54)
[2018-03-28] MEDS: SODIUM CHLORIDE 0.9% 1000ML 1,000 ML IV SCH (16:50)
[2018-03-28] MEDS ORDERED: MAGNESIUM HYDROXIDE SUSP 30 ML UDC PO ONE (16:53)
--- NOTE | 2018-03-28 17:04 | Orthopedic Consultation ---
Date of Consultation March 28, 2018 Assessment & Plan (1) Status post left knee replacement: History of Present Illness Reason for Consultation: Status post left total knee arthroplasty January 2018. Attending Physician: Georges Ny MD History of Present Illness Patient is a 72-year-old white female known to Dr. Sal's practice who underwent left total knee arthroplasty in January 2018. Earlier on in our discussion today she felt that she did not take her Xarelto postoperatively however after revisiting her tonight, she states that she did take 2 weeks of Xarelto postoperatively. She was not having any problems up until earlier this week. She was progressing well with her physical therapy however on Sunday she states she began having swelling and some discomfort in her left lower extremity. She was seen in Dr. Faustin's office and he sent her to the hospital for ultrasound. She was found to have a DVT and was admitted by the medicine service for further care Allergies Allergy/AdvReac Type Severity Reaction Status Date / Time blue dye Allergy Severe FACE Unverified 03/27/18 13:25 SWELLING duloxetine Allergy Severe FACE Verified 03/27/18 13:25 SWELLING capsaicin AdvReac Intermediate 'affects Verified 03/27/18 13:25 my kidneys' per pt diclofenac AdvReac Intermediate 'affects Verified 03/27/18 13:25 my kidneys' per pt Diclopak AdvReac Intermediate 'affects Verified 03/25/17 05:05 my kidneys' per pt Home Medications Home Medications Medication Instructions Recorded Confirmed Type acetaminophen [Tylenol Extra 1,000 mg PO UD PRN 12/21/17 03/27/18 History Strength] atorvastatin 20 mg PO QAM 12/21/17 03/27/18 History calcium carbonate [Tums] 200 mg PO QID PRN 12/21/17 03/27/18 History ferrous sulfate 325 mg PO QAM 12/21/17 03/27/18 History levothyroxine 100 mcg PO QAM 12/21/17 03/27/18 History multivitamin 1 cap PO QAM 12/21/17 03/27/18 History oxycodone-acetaminophen [Percocet] 1 tab PO Q6H PRN 03/27/18 03/27/18 History Patient History Medical History GERD (gastroesophageal reflux disease) (Chronic) CONTROLLED Osteoarthritis (Chronic) CKD (chronic kidney disease) stage 3, GFR 30-59 ml/min (Chronic) Chronic anemia (Chronic) Hypothyroidism (Chronic) HTN (hypertension) (Chronic) Dyslipidemia (Chronic) History of superficial phlebitis (Resolved) S/P BRIANNE (2016) Obesity Surgical History History of total hip arthroplasty (Resolved) RIGHT BRIANNE= 01/13/2016= SAB X1 AT [facility] History of hysterectomy (Resolved) History of colonoscopy (Resolved) History of esophagogastroduodenoscopy (EGD) (Resolved) History of arthroscopy (Resolved) RIGHT KNEE Status post left knee replacement (Resolved) History of total hysterectomy (Resolved) H/O arthroscopy of knee (Resolved) "09/2002 Dr. Hobson" Family History Other History of superficial phlebitis Social History Current Living Situation: Alone Other Information That Helps Us Care for You: No Feels Safe at Home: Yes Safety Concerns: Feels Safe At This Time Smoking Status: Never smoker Second Hand Exposure: No Hx Alcohol Use: Yes Alcohol type: beer Alcohol Intake Frequency: a few times a month Hx Substance Use: No Beliefs That Will Affect Care: None Communication Ability: Effective Review of Systems As per admitting history and physical. No recent fevers, chills, night sweats or on Weight loss. No flu or cold-like symptoms. No increased cough or sputum production. No nausea or vomiting. No increased shortness of breath or chest pain. She denotes increased swelling of the lower left lower extremity over the last week with increasing discomfort. Physical Exam 2 Vital Signs (Past 24 Hours): Last Vital Signs Temp 37.0 C 03/28/18 14:20 Pulse 110 H 03/28/18 14:20 Resp 18 03/28/18 14:20 BP 113/72 03/28/18 14:20 Pulse Ox 96 03/28/18 14:20 Physical Exam: Exam focuses on the left lower extremity at this time. Patient is currently awake and alert and oriented. No acute distress pleasant and cooperative. She is sitting up in the bed with her left lower extremity partially dangling over the edge of the bed. The incision over the left knee is well-healed. She has moderate swelling of the left lower extremity from the thigh down to the foot and ankle. She is not overtly tender on palpation of the knee at this time and range of motion is limited at this point due to new DVT and patient doing limited activity. She has good range of motion of her left ankle and toes. Sensation is intact there is no gross motor or sensory loss seen at this time. Results & Data Diagnostic Findings US venous doppler LE LT CLINICAL HISTORY: 72 years-old Female presenting with R/O BLOOD CLOT. TECHNIQUE: Real-time grayscale and color and spectral Doppler ultrasound imaging of the veins of the left lower extremity was performed. Compression and augmentation were also utilized. COMPARISON: None. FINDINGS: LEFT: Common femoral vein: Filling defect expanding the lumen consistent with occlusive thrombus. Greater saphenous vein (superficial): Filling defect consistent with occlusive thrombus. Deep femoral vein: Thrombus extends into the deep femoral vein and also appears occlusive to nonocclusive. Femoral vein: Extensive occlusive filling defect throughout the length of the femoral vein consistent with acute thrombus. Popliteal vein: Occlusive acute thrombus. Calf veins: Extensive filling defects consistent with occlusive thrombus in all of the interrogated calf veins. Other: Grossly patent left external iliac vein. Right common femoral vein patent as well as limited portion of the interrogated IVC.. IMPRESSION: Extensive occlusive acute deep venous thrombosis extending throughout the left lower extremity extending from the calf veins to at least the common femoral vein. The report will be called/faxed according to standard departmental protocol. Electronically signed by: Larry Sanz M.D. 03/27/2018 11:55 AM Laboratory Results WBC 8.71 K/uL (4.8-10.8) 03/28/18 05:18 RBC 3.16 M/uL (4.2-5.4) L 03/28/18 05:18 Hgb 8.6 g/dL (12.0-16.0) L 03/28/18 05:18 Hct 27.4 % (37-47) L 03/28/18 05:18 MCV 86.7 fL (80-100) 03/28/18 05:18 MCH 27.2 pg (25-34) 03/28/18 05:18 MCHC 31.4 g/dL (32-36) L 03/28/18 05:18 RDW Std Deviation 44.3 fL (36.4-46.3) 03/28/18 05:18 RDW Coeff of Saida 13.8 % (11.5-14.5) 03/28/18 05:18 Plt Count 153 K/uL (130-400) 03/28/18 05:18 MPV 11.1 fL (7.4-10.4) H 03/28/18 05:18 Immature Gran % (Auto) 0.2 % 03/27/18 13:15 Neut % (Auto) 75.0 % 03/27/18 13:15 Lymph % (Auto) 14.6 % 03/27/18 13:15 [facility] % (Auto) 9.0 % 03/27/18 13:15 Eos % (Auto) 1.0 % 03/27/18 13:15 Baso % (Auto) 0.2 % 03/27/18 13:15 Immature Gran # (Auto) 0.02 K/uL (0.00-0.02) 03/27/18 13:15 Neut # (Auto) 7.70 K/uL (1.4-6.5) H 03/27/18 13:15 Lymph # (Auto) 1.50 K/uL (1.2-3.4) 03/27/18 13:15 [facility] # (Auto) 0.92 K/uL (0.11-0.59) H 03/27/18 13:15 Eos # (Auto) 0.10 K/uL (0-0.5) 03/27/18 13:15 Baso # (Auto) 0.02 K/uL (0-0.2) 03/27/18 13:15 PT 10.6 Seconds (9.0-12.0) 03/27/18 13:15 INR 1.1 (0.9-1.1) 03/27/18 13:15 APTT 68.1 Seconds (21.0-31.0) H* 03/28/18 05:18 PTT Ratio 2.6 03/28/18 05:18 Sodium 135 mmol/L (136-145) L 03/28/18 05:18 Potassium 4.1 mmol/L (3.5-5.1) 03/28/18 05:18 Chloride 105 mmol/L (98-107) 03/28/18 05:18 Carbon Dioxide 24 mmol/L (21-32) 03/28/18 05:18 Anion Gap 6.0 (3-11) 03/28/18 05:18 BUN 27 mg/dl (7-18) H 03/28/18 05:18 Creatinine 1.28 mg/dl (0.6-1.2) H D 03/28/18 05:18 Est Cr Clr Drug Dosing 41.8 ml/min 03/28/18 05:18 Est GFR ( Amer) 47.7 03/28/18 05:18 Est GFR (Non-Af Amer) 41.1 03/28/18 05:18 BUN/Creatinine Ratio 21.3 (10-20) H 03/28/18 05:18 Glucose 94 mg/dl (70-99) 03/28/18 05:18 Calcium 8.3 mg/dl (8.5-10.1) L 03/28/18 05:18 Total Bilirubin 1.2 mg/dl (0.2-1) H 03/27/18 13:15 AST 64 U/L (15-37) H 03/27/18 13:15 ALT 62 U/L (12-78) 03/27/18 13:15 Alkaline Phosphatase 146 U/L (45-117) H 03/27/18 13:15 Total Protein 7.8 gm/dl (6.4-8.2) 03/27/18 13:15 Albumin 3.6 gm/dl (3.4-5.0) 03/27/18 13:15 Globulin 4.2 gm/dl (2.5-4.0) H 03/27/18 13:15 Albumin/Globulin Ratio 0.9 (0.9-2) 03/27/18 13:15
[2018-03-29] MEDS: SODIUM CHLORIDE 0.9% 1000ML 1,000 ML IV SCH (00:57)
[2018-03-29] MEDS: OXYCODONE/ACETAMINOPHEN 5mg/325mg TAB PO PRN ×3 (01:12→15:44)
[2018-03-29] MEDS: LEVOTHYROXINE SODIUM 100 MCG TABLET PO SCH (05:50)
[2018-03-29 06:24] LABS: Basophils # (auto) 0.02 K/uL (0-0.2); Basophils % (auto) 0.3 %; Eosinophils # (auto) 0.26 K/uL (0-0.5); Eosinophils % (auto) 3.7 %; Hematocrit (blood only) 25.2 % (37-47); Immature Granulocytes # (auto) 0.01 K/uL (0.00-0.02); Immature Granulocytes % (auto) 0.1 %; Lymphocytes # (auto) 2.41 K/uL (1.2-3.4); Lymphocytes % (auto) 34.5 %; Mean Corpuscular Hgb Conc 31.7 g/dL (32-36); Mean Corpuscular Volume 86.3 fL (80-100); Mean Platelet Volume 10.4 fL (7.4-10.4); Monocytes # (auto) 0.79 K/uL (0.11-0.59); Monocytes % (auto) 11.3 %; Neutrophils # (auto) 3.49 K/uL (1.4-6.5); Neutrophils % (auto) 50.1 %; Platelet Count 187 K/uL (130-400); RDW Coefficient of Variation 13.8 % (11.5-14.5); RDW Standard Deviation 43.8 fL (36.4-46.3); Red Blood Count 2.92 M/uL (4.2-5.4); White Blood Count 6.98 K/uL (4.8-10.8)
[2018-03-29 07:01] LABS: Partial Thromboplastin Ratio 2.4
[2018-03-29 07:09] LABS: BUN Creatinine Ratio 16.9 (10-20); Calcium 8.2 mg/dl (8.5-10.1); Creatinine Clr Calc Pharmacy 51.9 ml/min; Est GFR (Non-African American) 53.5; Potassium 4.1 mmol/L (3.5-5.1)
[2018-03-29 07:12] LABS: RBC Morphology Unremarkable
[2018-03-29 07:15] LABS: Partial Thromboplastin Time 61.8 Seconds (21.0-31.0)
[2018-03-29] MEDS: HEPARIN STANDARD DEXTROSE 25,000 UNITS/500 ML IV SCH (08:44)
--- NOTE | 2018-03-29 08:45 | Hospitalist Progress Note ---
Date of Service March 29, 2018 Assessment & Plan (1) DVT (deep venous thrombosis): Pt was admitted on 03/27/18 with c/o L leg edema and discomfort left groin with walking that started 2 days [employer] INS[employer]IST. Hx L TKA on 01/17/[address] Sal. Initially pt reported was unsure if she took xarelto 10mg po daily for DVT prophylaxis after surgery, however now pt reports that she believes that she did take it. 03/27/18: LLE VENOUS DOPPLER: Extensive occlusive acute deep venous thrombosis extending throughout the left lower extremity extending from the calf veins to at least the common femoral vein -Vascular was phone consulted by ER and reports pt would be unlikely a candidate for thrombectomy. -Vitals stable, afebrile, P: high of 110 yesterday and down to high 90's this am after receiving IVF, R: 16-20, BP: 115/73, O2 sats: 96-98% on RA. -Hgb: stable at 8 from 10 on admission, Plt: stable at 187, No reports of bleeding. Pt received IVF -No CP, pleuritic CP or SOB. -On heparin IV -will obtain u/s abdomen to r/o obstructing mass with current DVT LLE -plan to discharge on Eliquis (2) Hyponatremia: Na:139 from 130 on admission. Pt had poor oral intake prior to admission -recieved IVF -now hyponatremia resolved (3) CKD (chronic kidney disease) stage 3, GFR 30-59 ml/min: Cr: 1.03 from 1.7 on admission. Back to baseline. Baseline 1.1-1.4 -probable secondary to dehydration. Received IVF -continue to monitor renal functions -avoid nephrotoxic agents when possible (4) HTN (hypertension): Stable -not on meds currently (5) Dyslipidemia: -continue statin (6) Hypothyroidism: -continue levothyroxine (7) Chronic anemia: Hgb: 8.0. Was 10 on admission and 10.3 on discharge on 01/18/18 Pt had recieved IVF. No active bleeding -monitor H&H (8) Status post left knee replacement: Hx L TKA on 01/17/18. -continue tylenol and percocet prn pain (9) GERD (gastroesophageal reflux disease): Stable -continue TUMS prn indigestion DVT Prophylaxis -Pt with current DVT diagnosed prior to hospital admission and on heparin IV Disposition - anticipate discharge home today Full code as per discussion with pt Follows with Dr Bardales for routine care Pt was seen with Dr Ny. See addendum Supervising Physician Co-Signing Physician Notes Attending addendum The patient was seen and examined in medical floor She complains to have left leg swelling more than the thigh than the lower left She has been getting pain medial upper thigh on ambulate Denies any other symptoms On examination No apparent distress in bed Hemodynamically stable Left lower extremity is swollen-no change compared with to that on the Will get ultrasound of the lower abdomen to rule out any obstructive lesion Will get CT scan of the left thigh rule out any hematoma and/or mass Agree with assessment and plan as outlined above by Amina Ny Subjective Pt seen and examined. F/U LLE DVT. Sitting up in bed. On heparin IV. Doing well, has pain to left upper inner thigh , groin with ambulation, no pain at rest. Feels edema about the same to LLE. Denies any bleeding, epistaxsis, hematuria, hematochezia or hemoptysis. Denies fever/chills, N/V/D/C, HAWK, dizziness, syncope, CP, SOB, pleuritic CP, palpitations, cough, abdominal pain, paresthesias, rashes, urinary symptoms. Physical Exam 2 Vital Signs (Past 24 Hours): Last Vital Signs Temp 36.7 C 03/29/18 07:18 Pulse 96 H 03/29/18 07:18 Resp 18 03/29/18 07:18 BP 115/73 03/29/18 07:18 Pulse Ox 98 03/29/18 07:18 Physical Exam: General: no distress, WDWN Head: normocephalic, atraumatic Eyes: conjunctiva non-injected, anicteric ENT: normal inspection external ears, nose, mucous membranes moist Neck: supple, trachea midline, non-tender Lungs: clear, no respiratory distress, no wheezing/rhonchi/rales CV: RRR, no murmur Abd: normal BS, soft, non-tender Ext: LLE: +healed surgical incision to anterior knee, +diffuse edema to left leg , appears about same as yesterday and is without cyanosis, pallor, or erythema. no significant tenderness to palpation, extremity soft, distal pulses intact, brisk capillary refill, sensation to light touch intact. Remaining extremities with normal appearance and non-tender Neuro: A&O x 3, no focal deficits noted, normal affect Skin: warm, dry Results & Data Laboratory Results Short CBC 03/29/18 Range/Units 05:39 WBC 6.98 (4.8-10.8) K/uL Hgb 8.0 L (12.0-16.0) g/dL Hct 25.2 L (37-47) % Plt Count 187 (130-400) K/uL BMP 03/29/18 05:39 Sodium 139 Potassium 4.1 Chloride 108 H Carbon Dioxide 23 BUN 17 Creatinine 1.03 Glucose 101 H Calcium 8.2 L _ (1) DVT (deep venous thrombosis) Affected thrombotic vein of extremity: unspecified vein of extremity Chronicity: acute DVT location: lower extremity Laterality: left Qualified Code(s): I82.402 - Acute embolism and thrombosis of unspecified deep veins of left lower extremity
[2018-03-29] MEDS: MULTIVITAMIN TAB PO SCH (08:46)
[2018-03-29] MEDS: ATORVASTATIN 20 MG TAB PO SCH (08:46)
[2018-03-29] MEDS: FERROUS SULFATE 325 MG TAB PO SCH (08:46)
[2018-03-29] MEDS ORDERED: IOVERSOL 100ml IV PRN (13:24)
--- NOTE | 2018-03-29 13:46 | CT Scan Report ---
CT femur LT w con CT DOSE: 489.42 mGy.cm CLINICAL HISTORY: Left leg edema. Evaluate for possible hematoma. Patient with DVT. TECHNIQUE: The patient was scanned in a dynamic helical fashion during intravenous administration of 94 cc of Optiray 320. A dose lowering technique was utilized adhering to the principles of ALARA. COMPARISON STUDY: None. FINDINGS: There are postsurgical changes of a total left knee arthroplasty. There is diffuse soft tis porfirio edema. There are no acute fractures. No destructive lesions are visualized. There is no CT eviden ce of a soft tissue hematoma. Extensive left lower extremity DVT is suspected. IMPRESSION: 1. Extensive left lower extremity DVT concordant with the ultrasound findings 2. Diffuse soft tissue edema 3. No evidence of hematoma. 4. No evidence of fracture Electronically signed by: Compa Wilson M.D. 03/29/2018 1:45 PM
--- NOTE | 2018-03-29 14:07 | Ultrasound Report ---
PELVIC ULTRASOUND CLINICAL HISTORY: r/o pelvic mass causing LLE edema COMPARISON STUDY: None. TECHNIQUE: Transabdominal sonography of the pelvis was performed. Transvaginal imaging was deferred in this patient. FINDINGS: The uterus is surgically absent. Neither ovary was visualized. There was no adnexal mass. N o mass is identified within the pelvis by sonography although exam is compromised by suboptimal penet ration. IMPRESSION: 1. No pelvic mass by sonography. 2. Status post hysterectomy. Ovaries not visualized. These may be surgically absent and could be sarath elated with surgical history. Electronically signed by: James Whipple M.D. 03/29/2018 2:06 PM
[2018-03-29 14:37] VITALS: PULSE 99; TEMP 98.4; O2SAT 99
[2018-03-29 16:23] VITALS: BP 116/80
--- NOTE | 2018-03-29 16:41 | Discharge Summary ---
Date of Service March 29, 2018 Admission HPI Per Admitting Provider Pt is 72 y/o F with PMH HTN, HLD, CKD III, hypothyroidism, GERD presented to ER with c/o left leg edema x 2 days. Pt with hx L TKA on 01/17/[address] Sal. She was on xarelto 10mg po daily and appears to have been discharged on xarelto x 14 days however pt states never took after discharge from hospital and is unsure if had Rx. Reports 2 days ago noticed discomfort to L upper inner thigh with walking and noticed edema of entire left leg. Had out patient venous doppler and was referred to ER for extensive occlusive DVT L calf veins to common femoral. Pt with hx superficial DVT after previous R hip replacement. She reports that she has been participating in PT 3 times a week and doing stationary exercise bike at home. Denies recent travel. Denies fever/chills, diaphoresis, N/V/D/C, HAWK, dizziness, syncope, vision changes, neck pain, CP, SOB , orthopnea, palpitations, cough, sore throat, choking, otalgia, rhinorrhea, abdominal pain, paresthesias, extremity weakness, rashes, urinary symptoms. Admission Exam Per Admitting Provider General: no distress, WDWN Head: normocephalic, atraumatic Eyes: conjunctiva non-injected, anicteric ENT: normal inspection external ears, nose, mucous membranes moist Neck: supple, trachea midline, non-tender Lungs: clear, no respiratory distress, no wheezing/rhonchi/rales CV: RRR, no murmur Abd: normal BS, soft, non-tender Ext: LLE: +healed surgical incision to anterior knee, +diffuse edema without cyanosis or erythema, no significant tenderness to palpation, distal pulses intact, brisk capillary refill, sensation to light touch intact. Remaining extremities with normal appearance and non-tender Neuro: A&O x 3, no focal deficits noted, normal affect Skin: warm, dry Principal Diagnosis DVT LLE Discharge Exam General: no distress, WDWN Head: normocephalic, atraumatic Eyes: conjunctiva non-injected, anicteric ENT: normal inspection external ears, nose, mucous membranes moist Neck: supple, trachea midline Lungs: clear, no respiratory distress, no wheezing/rhonchi/rales CV: RRR, no murmur Abd: normal BS, soft, non-tender Ext: LLE: +healed surgical incision to anterior knee, +diffuse edema to left leg , appears about same as yesterday and is without cyanosis, pallor, or erythema. no significant tenderness to palpation, extremity soft, distal pulses intact, brisk capillary refill, sensation to light touch intact. Remaining extremities with normal appearance and non-tender Neuro: A&O x 3, no focal deficits noted, normal affect Skin: warm, dry Discharge Data Allergies Allergy/AdvReac Type Severity Reaction Status Date / Time blue dye Allergy Severe FACE Unverified 03/27/18 13:25 SWELLING duloxetine Allergy Severe FACE Verified 03/27/18 13:25 SWELLING capsaicin AdvReac Intermediate 'affects Verified 03/27/18 13:25 my kidneys' per pt diclofenac AdvReac Intermediate 'affects Verified 03/27/18 13:25 my kidneys' per pt Diclopak AdvReac Intermediate 'affects Verified 03/25/17 05:05 my kidneys' per pt Ordered Studies US pelvic complete IMPRESSION: 1. No pelvic mass by sonography. 2. Status post hysterectomy. Ovaries not visualized. These may be surgically absent and could be correlated with surgical history. CT femur LT w con IMPRESSION: 1. Extensive left lower extremity DVT concordant with the ultrasound findings 2. Diffuse soft tissue edema 3. No evidence of hematoma. 4. No evidence of fracture LLE Venous Doppler: IMPRESSION: Extensive occlusive acute deep venous thrombosis extending throughout the left lower extremity extending from the calf veins to at least the common femoral vein. Hospital Course (1) DVT (deep venous thrombosis): Pt was admitted on 03/27/18 with c/o L leg edema and discomfort left groin with walking that started 2 days [employer]IST. Hx L TKA on 01/17/[address] Sal. Initially pt reported was unsure if she took xarelto 10mg po daily for DVT prophylaxis after surgery, however now pt reports that she believes that she did take it. 03/27/18: LLE VENOUS DOPPLER: Extensive occlusive acute deep venous thrombosis extending throughout the left lower extremity extending from the calf veins to at least the common femoral vein -Vascular was phone consulted by ER and reports pt would be unlikely a candidate for thrombectomy. -Vitals stable, afebrile, P: high of 110 and down to high 90'safter receiving IVF, R: 16-20, BP: 115/73, O2 sats: 96-98% on RA. -Hgb: 8 from 10 on admission, Plt: stable at 187, No reports of bleeding. Pt received IVF -Had No CP, pleuritic CP or SOB. -treated with heparin IV -US pelvis showed no obstructing mass noted -CT upper leg was without hematoma -discharge on Eliquis -percocet prn pain. PDMP database queried. Findings: No risks identified. (2) Hyponatremia: Sodium improved to 139 from 130 on admission. Pt had poor oral intake prior to admission -recieved IVF -hyponatremia resolved (3) CKD (chronic kidney disease) stage 3, GFR 30-59 ml/min: Cr: 1.03 from 1.7 on admission. Back to baseline. Baseline 1.1-1.4 -probable secondary to dehydration. Received IVF -continue to monitor renal functions -avoid nephrotoxic agents when possible (4) HTN (hypertension): Stable -not on meds currently (5) Dyslipidemia: -continue statin (6) Hypothyroidism: -continue levothyroxine (7) Chronic anemia: Hgb: 8.0. Was 10 on admission and 10.3 on discharge on 01/18/18 Pt had recieved IVF. No active bleeding -CT upper leg shows no hematoma (8) Status post left knee replacement: Hx L TKA on 01/17/18. (9) GERD (gastroesophageal reflux disease): Stable -continue TUMS prn indigestion DVT Prophylaxis -Pt with DVT diagnosed prior to hospital admission and on heparin IV Disposition - discharge home Follow up with Dr Bardales on 04/03/18 at 12:45p Total Time Total Time Spent Total Time Spent (In Minutes): 40 minutes Discharge Plan Discharge Items Patient Disposition: Home - Self-Care Reason For Visit: DVT LLE Discharge Diagnosis: DVT Left leg Condition: Good Discharge Goals: Improve function and Therapeutic intervention Activity: As commented below Activity Comment: Can resume daily activities, walking activity as tolerated Non-emergency contact: Primary Care Provider Call non-emergency contact if: you have any medication questions, your symptoms worsen and your pain is worsening Diet: Regular Addtl Provider Instructions: Follow up with Primary care doctor - Dr Bardales on 04/03/18 at 12:45pm at [facility] Follow up sooner if developing worsening pain or swelling. Contact primary care doctor if develop any bleeding (nosebleed, blood in stool or urine). You may bruise more easily being on the anticoagulant (" blood thinner") Prescriptions: New apixaban [Eliquis] 5 mg tablet See Label Instructions .ROUTE .COMPLEX Qty: 70 RF: 0 oxycodone-acetaminophen [Percocet] 5-325 mg tablet 1 tab PO Q6H PRN (Reason: pain) Qty: 12 RF: 0 Continue acetaminophen [Tylenol Extra Strength] 500 mg Tablet 1,000 mg PO UD PRN (Reason: Pain) RF: 0 atorvastatin 20 mg Tablet 20 mg PO QAM RF: 0 ferrous sulfate 325 mg (65 mg iron) Tablet 325 mg PO QAM RF: 0 calcium carbonate [Tums] 200 mg calcium (500 mg) Tablet,Chewable 200 mg PO QID PRN (Reason: Indigestion) RF: 0 multivitamin Capsule 1 cap PO QAM RF: 0 levothyroxine 100 mcg Capsule 100 mcg PO QAM RF: 0 oxycodone-acetaminophen [Percocet] 5-325 mg Tablet 1 tab PO Q6H PRN (Reason: Pain) RF: 0 Stand-Alone Forms: [facility] Discharge Orders: Discharge Order (Routine); Ordered 03/29/18 Ordered By: Amina Newton Admission Data Admit Date/Time: 03/27/18 17:03 Attending Provider: Georges Ny Admit Provider: Georges Ny Primary Care Provider: Glen Bardales Other Providers: Georges Ny Service: Medical Other Interventions: Discharge Summary Assessment (RN) Last Done: 03/29/18 16:20 Pending Studies at Discharge: No DC Date/Time DO NOT enter until pt leaves facility: 03/29/18 17:11 Supervising Physician Co-Signing Physician Notes Attending addendum: The discharge summary was reviewed by me and this was completed with my supervision. I agree with the document as outlined by Amina Wheeler. Dr Ced Ny
== END 2018-03-29 17:11 | disposition home or self-care (01) | DRG 300 ==
LOC: ED 12:12 → 4E 17:03

== ENCOUNTER 2021-06-22 06:59 | Observation (INO) ==
[2021-06-22] MEDS ORDERED: MIDAZOLAM HCL 1 MG/ML 2ML VIAL ONE (07:27)
[2021-06-22] MEDS ORDERED: HEPARIN (PORCINE) 1000 UNIT/ML 10 ML (CATH LAB USE ONLY) ONE (07:28)
[2021-06-22] MEDS ORDERED: fentaNYL citrate 100 MCG/2 ML VIAL ONE (07:28)
[2021-06-22] MEDS ORDERED: niCARdipine HCL INJ 2.5 MG/ML 10 ML AMP ONE (07:28)
[2021-06-22] MEDS ORDERED: NITROGLYCERIN/D5W 100MCG/ML 20ML SYR ONE (07:28)
--- NOTE | 2021-06-22 07:57 | Pre Anesthesia Assessment ---
Date of Service June 22, 2021 Pre Sedation Assessment Vital Signs Temp Pulse Resp BP Pulse Ox 06/22/21 07:13 36.7 C 71 20 173/83 H 97 Pre-Sedation Airway Assessment Smoking Status: Never smoker Hx Sleep Apnea: No Short, Thick Neck: No Thyromental Distance: > or= 3.5 Finger Breadths Oral Cavity: + WNL Mallampati Class: II ASA: ASA2 NPO Status Date of Last Intake of Fluids: 06/21/21 Time of Last Intake of Fluids: 19:00 Date of Last Intake of Solid Food: 06/21/21 Time of Last Intake of Solid Foods: 19:00 Notes The planned sedation has been discussed with the patient. Informed Consent was obtained. I have identified the patient, determined the appropriateness of sedation and have assessed the patient immediately prior to the procedure. All medicine(s) and interventions are by my order.
--- NOTE | 2021-06-22 07:57 | History & Physical Bridge Note ---
Date of Service June 22, 2021 History & Physical Bridge Note I have examined the patient, reviewed the History & Physical and in the interval since the performance of the History & Physical I have noted the following changes of clinical significance: no changes noted I have explained the risk, benefit and intent to the cardiac catheterization to the patient and she is willing to proceed.
[2021-06-22] MEDS ORDERED: SODIUM CHLORIDE 0.9% 1000ML 1,000 ML IV SCH (08:00)
--- NOTE | 2021-06-22 09:24 | Cardiac Catheterization ---
Date of Service June 22, 2021 Cardiac Cath Report Cardiac Cath Report Procedure: 1. Left heart catheterization 2. Coronary angiography 3. Left ventriculogram History: This is a 75-year-old female who has been having chest discomfort and had an abnormal dobutamine stress echocardiogram. She was referred for cardiac catheterization. Procedure summary: After informed consent was obtained the patient was brought to the cardiac catheterization lab where she was prepped and draped in the usual manner for right transradial approach. Preformed 5 Armenian diagnostic catheters were utilized for the coronary angiograms. A 5 Armenian pigtail catheter was utilized for the left heart pressures and left ventriculogram. Following the procedure the patient underwent coronary intervention. ACC data: Start time 8:38 AM End time 9:04 AM Opening aortic pressure 163/70 Closing aortic pressure 185/76 LV pressure 176/22 Sedation 1 mg intravenous Versed IV fluid 150 cc normal saline Contrast 121 cc Visipaque Fluoroscopy time 7.6 minutes Radiation 1172 mGy DAP 110.72 Gy/cm Right dominant system AUC score 9 Coronary angiography: Selective injections of the left coronary artery revealed the left main trunk to be widely patent. The left circumflex artery gives off 2 large posterior mar ginal branches. The left circumflex artery has minor luminal irregularities but is widely patent. There is a long area of subtotaled stenoses within the proximal LAD with the distal LAD filling with ROGER grade I flow as well as left to left collaterals. There is a medium size ramus branch from the proximal LAD which is patent. There is also a large diagonal branch after the stenoses which has ROGER grade I-II flow. Injections into the right coronary artery reveal it to be dominant. The right coronary artery has luminal irregularities but is widely patent. Left ventriculogram: The left ventricle has mild hypokinesis of the anterior myocardium. The estimated left ventricular ejection fraction is 50%. The mitral valve is competent. The aortic root and ascending aorta have normal morphology and diameter. Summary: The patient has single-vessel coronary artery disease with a long area of subtotal stenosis in the proximal to mid LAD. LV function is slightly reduced with mild hypokinesis of the anterior myocardium. Recommendations: Interventional review for possible PCI of the LAD.
--- NOTE | 2021-06-22 11:15 | Post Anesthesia Assessment ---
Date of Service June 22, 2021 Post Sedation Assessment Vital Signs Temp Pulse Resp BP Pulse Ox 06/22/21 11:10 67 18 169/75 H 98 06/22/21 10:55 67 18 169/75 H 98 06/22/21 10:40 66 18 169/79 H 98 06/22/21 07:13 98.1 F 71 20 173/83 H 97 Recovery Score Activity: Moves 4 extremities Respiration: Deep Breath/Cough Circulation: +/-20% PreAnes Value Consciousness: Fully Awake Oxygen Saturation: > 92% On Room Air Post Anesthesia Score: 10 Discharge Sedation Level of Care: Fast Track Phase II Post Sedation Plan On clinical assessment, the patient appears to have tolerated the sedation without complications. Patient is recovering as anticipated. Patient will continue to be monitored by nursing and may be discharged when sedation discharge criteria are met per below protocol. Upon Completions of procedure up to 15 minutes continue every 5 minute vital signs and the P.A.R. score; then discharge to a Phase I or Fast Track to Phase II per the following guidelines: * Discharge Patient to appropriate Phase II area if PAR is 8 or greater or return to pre- procedure baseline. The post - procedure orders will be as directed. * If PAR score is less than 8 or not return to pre-procedure baseline then patient will follow Phase I monitoring till PAR is reached for Phase II. The Phase I may be done in procedure room or may call to secure a Phase I area. * If naloxone or flumazenil are used for reversal, hold in Phase I for continued monitoring from when last reversal dose was given for a minimum of 60 minutes or longer pending the nurse and/or physician discretion of patient condition before discharge to Phase II. Please call the Sedation Physician to re-evaluate and complete post-note for discharge to Phase II area. Do NOT discharge from procedure sedation or Phase 1 until post- sedation evaluation note is complete by procedure /sedation MD Sedation Discharge Instructions to be given to the patient at discharge to home.
[2021-06-22] MEDS ORDERED: ONDANSETRON INJ 2 MG/ML 2 ML VIAL IV PRN (11:16)
--- NOTE | 2021-06-22 11:16 | Cardiac Catheterization ---
[facility] Data: Sas Statistical Programmer Cardiac Status Clinical evaluation leading to the procedure CAD Presenation: Positive Stress Test and Stable angina Diagnostic Physicians Name: Papa Mckenzie MD Closure Device Recommendations: PCI without planned CABG Cardiac Cath Procedure Full Procedure Date June 22, 2021 Pre-Procedure Diagnosis Pre-Procedure Diagnosis: Positive Stress Test and CAD AUC Score AUC Score: 7 Post-Procedure Diagnosis Post-Procedure Diagnosis: Severe CAD and Unsuccessful PCI Procedure(s) Performed Procedure(s) Performed: Coronary Angiography Millinery Teacher Papa Mckenzie MD Ase Master Mechanic(s) Leobardo Estimated Blood Loss Estimated Blood Loss: 10 Medication(s) Medication(s): Fentanyl, Heparin and Versed Summary of Findings Indication: Angina, abnormal stress Access: 6 Fr right radial artery Catheters: EBU 3.5 guide, telescope support catheter Findings: For full details of patient's coronary angiography please see cath report dictated by Dr. Knight. Briefly, patient found to have subtotal proximal to mid LAD occlusion with faint left to left collaterals. Decision to proceed with attempted PCI of LAD. -- PCI -- Antithrombotic therapy: Heparin Procedure: Left main cannulated with EBU 3.5 guide Pre-procedure flow ROGER 1 Attempts made to pass whisper wire, chief pilot 50 across subtotal occlusion. With the aid of a OTW balloon able to push across stenosis but wire repeatedly into dissection plane and unable to re-enter into true lumen. Minimal staining in mid LAD dissection plane with injection. Patient remained chest pain-free. Decision to abort and discuss further options. No other apparent coronary complications. Arterial Closure: TR band Summary: 1. Unsuccessful attempted PCI of proximal LAD chronic subtotal occlusion. Recommendations: To PCU for continued monitoring Maximize antianginal therapy Continue ASCVD risk factor modification Further discussion with Luís Case regarding medical management versus GENERAL OPERATIONS AGENT PCI versus CABG Hemodynamics Rest Ao:: 163/70/108 Final Ao: 184/78/122 LV: 174/20 Recommendations Recommendations: PCI without planned CABG Specimens Specimens: None Radiation Exposure (mGy) 5197 Contrast (mls) 171 Anesthesia moderate 9:35-1021 Procedural Complication(s) None Disposition PCU I attest to the content of the Intraoperative Record and any orders documented therein. Any exceptions are noted below. [facility] Card Cath Procedure Codes Moderate Sedation Procedure 1: Sedation/Anesthesia: 01836 Mod Sedation by the same physician; Ea [id number] Minutes PG Care Time/CCT Total # of Minutes Spent Total Time Spent with Patient: Total time spent is greater than 50% in coordination of care (as documented) at patient's floor/unit and/or counseling patient:
[2021-06-22] MEDS ORDERED: CALCIUM CARBONATE 500 MG CHEWABLE TAB PO PRN (11:19)
[2021-06-22] MEDS ORDERED: ACETAMINOPHEN 500 MG TAB PO PRN (11:19)
[2021-06-22] MEDS ORDERED: amLODIPine BESYLATE 5 MG TAB PO STA (12:28)
[2021-06-22] MEDS ORDERED: SODIUM CHLORIDE 0.9% 1000ML 500 ML IV SCH (12:30)
--- NOTE | 2021-06-22 14:15 | Communication Note ---
Date of Service: June 22, 2021 The patient underwent a attempt at PCI of the LAD. The attempt was unsuccessful and there was a small non-hemodynamically significant dissection. The patient is admitted for observation overnight. She is currently clinically stable.
--- NOTE | 2021-06-22 14:35 | History & Physical Report ---
Date of Service June 22, 2021 Assessment & Plan (1) CAD (coronary artery disease): Plan: Recent abnormal stress test prompting cardiac catheterization today. Unsuccessful PCI attempt c/b microdissection of LAD. Patient remains hemodynamically stable and asymptomatic. Cont observation in PCU overnight, cardiology following. Cont home meds including ASA 81mg, Lipitor 40mg PO daily, Toprol XL 25mg daily. (2) Osteoarthritis: Plan: chronic, no pain at this time. Tylenol PRN. (3) Hypothyroidism: Plan: chronic, stable. Cont home levothyroxine. (4) Dyslipidemia: Plan: chronic, stable. Cont Lipitor recently increased to 40mg by her cotton classer aide in outpatient setting. Repeat lipids in 3 months as outpatient. (5) CKD (chronic kidney disease) stage 3, GFR 30-59 ml/min: Plan: chronic, stable. Creat at baseline. Encouraged to stay hydrated after contrast. (6) DVT prophylaxis: Plan: SCDs/ambulation as tolerated. Full Code Dispo-to home in am. prison plan per her cardiology team. Cont medical management of CAD. Ebony Enamorado DO [facility] Hospitalist Admission and Anticipated Discharge Date Admission Date: June 22, 2021 History of Present Illness Chief Complaint: chest pain Primary Care Provider: Glen Bardales MD 75 yo F with recent exertional chest pain and abnormal dobutamine stress echocardiogram on 06/02/21 presents for elective heart catheterization. Although no stress induced wall motion abnormalities were observed, the EKG response was abnormal with [address] segment depression noted at peak stress. She has no known h/o CAD but has been on Lipitor 20mg for dyslipidemia prior to the onset of recent symptoms. She was recently seen in [facility]iology clinic and additional medical therapy was added including metoprolol succinate 25mg daily, daily ASA 81mg, and an increase in her Lipitor to 40mg daily for goal LDL <70. She underwent a left heart cath with an attempt to pass through LAD lesion, however, this was unsuccessful with a microdissection that occurred as a result that was not hemodynamically significant. She remained chest pain free and is still asymptomatic. Allergies Allergy/AdvReac Type Severity Reaction Status Date / Time blue dye Allergy Severe FACE Verified 06/22/21 07:30 SWELLING duloxetine Allergy Severe FACE Verified 06/22/21 07:30 SWELLING capsaicin AdvReac Intermediate 'affects Verified 06/22/21 07:41 my kidneys' per pt diclofenac AdvReac Intermediate 'affects Verified 06/22/21 07:41 my kidneys' per pt Diclopak AdvReac Intermediate 'affects Verified 03/25/17 05:05 my kidneys' per pt Home Medications Medication Instructions Recorded Confirmed Type acetaminophen 500 mg tablet 1,000 mg PO UD PRN 12/21/17 06/22/21 History (Tylenol Extra Strength) atorvastatin 20 mg tablet 40 mg PO QAM 12/21/17 06/22/21 History calcium carbonate 200 mg calcium 200 mg PO QID PRN 12/21/17 06/22/21 History (500 mg) chewable tablet (Tums) ferrous sulfate 325 mg (65 mg 325 mg PO QAM 12/21/17 06/22/21 History iron) tablet levothyroxine 100 mcg capsule 100 mcg PO QAM 12/21/17 06/22/21 History multivitamin 1 cap PO QAM 12/21/17 06/22/21 History aspirin 81 mg tablet 81 mg PO DAILY 06/22/21 06/22/21 History metoprolol succinate 25 mg 25 mg PO DAILY 06/22/21 06/22/21 History tablet,extended release 24 hr (Toprol XL) pantoprazole 20 mg tablet,delayed 20 mg PO DAILY 06/22/21 06/22/21 History release (Protonix) Past Med/Surg History Medical History (Updated 06/22/21 @ 15:20 by Ebony Enamorado DO) Chronic anemia CKD (chronic kidney disease) stage 3, GFR 30-59 ml/min Deep vein thrombosis LLE - 03/2018 - [facility] - ON ELIQUIS - POST OP L KNEE REPLACEMENT Dyslipidemia GERD (gastroesophageal reflux disease) CONTROLLED History of superficial phlebitis S/P BRIANNE (2015) HTN (hypertension) Hypothyroidism Obesity Osteoarthritis Surgical History H/O arthroscopy of knee "09/2002 Dr. Hobson" History of arthroscopy RIGHT KNEE History of cataract surgery History of colonoscopy History of esophagogastroduodenoscopy (EGD) History of hysterectomy History of total hip arthroplasty RIGHT BRIANNE= 01/13/2016= SAB X1 AT [facility] History of total hysterectomy History of total knee replacement LT - [facility] 01/2018 Family History Other History of superficial phlebitis Social History Smoking Status: Never smoker Second Hand Exposure: No; Hx Alcohol Use: Yes Alcohol type: beer Hx Substance Use: No Preferred Language: Luxembourger Communication Ability: Effective Visual Impairment: No Limitations Customer Care Assistant Required: No Beliefs That Will Affect Care: None Current Living Situation: Alone Other Information That Helps Us Care for You: No Feels Safe at Home: Yes Assistive Devices: None Review of Systems Review of Systems: All systems were reviewed and negative except as indicated above. Physical Exam Physical Exam: CONSTITUTIONAL: WNWD, vitals as above, generally well- appearing, NAD EYES: normal conjunctivae, no scleral icterus ENT: external ear and nose normal, MMM NECK: trachea midline RESPIRATORY: clear to auscultation bilaterally, no crackles, rales or wheezes, normal respiratory effort CARDIOVASCULAR: regular rate and rhythm, S1 and 2 heard without murmurs, gallops or rubs, no JVD, no peripheral edema, extremities are warm and well perfused. 2+radial pulses bilaterally, op site intact with no issues. CHEST: inspection of chest was normal GASTROINTESTINAL: soft, nontender,, ND, no guarding MUSCULOSKELETAL: strength 5/5 throughout, head is normocephalic and atraumatic SKIN: warm and dry NEUROLOGIC: CN 2-12 grossly intact, no sensory deficit, normal cognition, normal speech, no tremor PSYCHIATRIC: alert cooperative and oriented to person, place and time. Results & Data Results & Data ([facility]) Vital Signs (Past 12 Hours) Vital Signs Temp Pulse Resp BP Pulse Ox 06/22/21 12:30 18 145/85 H 96 06/22/21 11:40 71 18 170/80 H 98 06/22/21 11:25 76 18 177/81 H 98 06/22/21 11:10 67 18 169/75 H 98 06/22/21 10:55 67 18 169/75 H 98 06/22/21 10:40 66 18 169/79 H 98 06/22/21 07:13 36.7 C 71 20 173/83 H 97 Medications Administered Current Inpatient Medications Acetaminophen (Acetaminophen 500 Mg Tab) 1,000 mg PO Q6H PRN PRN Reason: Pain Stop: 07/22/21 11:18 Last Admin: 06/22/21 13:27 Dose: 1,000 mg Documented by: Amlodipine Besylate (Amlodipine Besylate 5 Mg Tab) 5 mg PO QAM [facility] Stop: 07/23/21 08:59 Aspirin (Aspirin 81 Mg Ectab) 81 mg PO QAM [facility] Stop: 07/23/21 08:59 Atorvastatin Calcium (Atorvastatin 40 Mg Tab) 40 mg PO QAM [facility] Stop: 07/23/21 08:59 Calcium Carbonate (Calcium Carbonate 500 Mg Chewable Tab) 500 mg PO QID PRN PRN Reason: Indigestion Stop: 07/22/21 11:18 Ferrous Sulfate (Ferrous Sulfate 325 Mg Tab) 325 mg PO QAM [facility] Stop: 07/23/21 08:59 Levothyroxine Sodium (Levothyroxine S[facility] 100 Mcg Tablet) [facility]: 07/23/21 06:29 Metoprolol Succinate (Metoprolol Succ 25mg Ext Rel Tab) 25 mg PO DAILY [facility] Stop: 07/23/21 08:59 Multivitamins (Multivitamin Tab) [facility] [place] Stop: 07/23/21 08:59 Ondansetron HCl (Ondansetron Inj 2 Mg/Ml 2 Ml Vial) 4 mg IV Q6H PRN PRN Reason: Nausea And Vomiting Stop: 07/22/21 11:15 Pantoprazole Sodium (Pantoprazole 40 Mg Tab) 40 mg PO DAILY [facility] Stop: 07/23/21 08:59 Code Status & VTE Plan VTE Prophylaxis Plan VTE Prophylaxis will be ordered: Yes
[2021-06-23] MEDS ORDERED: LEVOTHYROXINE SODIUM 100 MCG TABLET PO SCH (06:30)
[2021-06-23] MEDS ORDERED: ATORVASTATIN 40 MG TAB PO SCH (09:00)
[2021-06-23] MEDS ORDERED: amLODIPine BESYLATE 5 MG TAB PO SCH (09:00)
[2021-06-23] MEDS ORDERED: ASPIRIN 81 MG ECTAB PO SCH (09:00)
[2021-06-23] MEDS ORDERED: PANTOprazole 40 MG TAB PO SCH (09:00)
[2021-06-23] MEDS ORDERED: FERROUS SULFATE 325 MG TAB PO SCH (09:00)
[2021-06-23] MEDS ORDERED: METOPROLOL SUCC 25MG EXT REL TAB PO SCH (09:00)
[2021-06-23] MEDS ORDERED: MULTIVITAMIN TAB PO SCH (09:00)
[2021-06-23 09:28] LABS: Hematocrit (blood only) 39.9 % (37-47); Hemoglobin 12.9 g/dL (12.0-16.0); Mean Corpuscular Hemoglobin 28.9 pg (25-34); Mean Corpuscular Volume 89.5 fL (80-100); Mean Platelet Volume 10.5 fL (7.4-10.4); Platelet Count 209 K/uL (130-400); RDW Coefficient of Variation 13.4 % (11.5-14.5); RDW Standard Deviation 43.8 fL (36.4-46.3); Red Blood Count 4.46 M/uL (4.2-5.4)
[2021-06-23 09:40] LABS: Mean Corpuscular Hgb Conc 32.3 g/dL (32-36)
[2021-06-23] MEDS ORDERED: METOPROLOL SUCC 25MG EXT REL TAB PO STA (09:45)
--- NOTE | 2021-06-23 09:53 | Cardiology Progress Note ---
Date of Service June 23, 2021 Assessment & Plan (1) CAD (coronary artery disease): (2) Exertional angina: Plan: Patient with findings of SUPERVISOR OPENING AND PICKING of the LAD , unsuccessful PCI. Proceed with trial in intensified medication therapy. Increase metoprolol succinate to 50 mg daily. Add amlodipine 5 mg daily. Atorvastatin dose recently increased as outpatient. Continue ASA 81 mg daily (enteric coated) Will plan to refer patient to [employer] clinic at [facility] for further opinion as outpatient with trial of intensified medical Rx in the interim. (3) HTN (hypertension): Plan: metoprolol and amlodipine. 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 Recommend pt remains off of work until Sunday. Radial recovery instructions added to DC documents. Follow up CBC this am stable. Await CMP results. As long as renal function stable, patient candidate for DC to home today. Cardio follow up already arranged. Admission and Anticipated Discharge Date Admission Date: June 22, 2021 Subjective Patient seen in cardiology follow up. No agnina walking last evening or this am. Telemetry reveals SR in the 70s at resting, 90s to 100s with minimal exertion. Review of Systems Review of Systems: All systems reviewed & are unremarkable except as noted in HPI & below Physical Exam Constitutional: WD/WN, vitals as above Respiratory: normal respiratory effort, lungs clear to auscultation Cardiovascular: RRR, no murmur, no edema R radial access site , clean dry and intact. Gastrointestinal (Abdomen): normal bowel sounds, soft, nontender, no hepatosplenomegaly Neurologic: PERRL, EOMI, accommodation nl, no face palsy, no dysarthria Results & Data ([facility]) Vital Signs (Past 12 Hours) Vital Signs Temp Pulse Pulse Resp BP Pulse Ox 06/23/21 07:54 82 06/23/21 07:04 36.6 C 81 14 133/67 92 06/23/21 04:02 36.6 C 95 H 18 137/72 95 06/22/21 23:38 36.8 C 74 18 134/90 96 06/22/21 22:20 68 Laboratory Results CBC 06/23/21 Range/Units 09:18 WBC 7.20 (4.8-10.8) K/uL RBC 4.46 (4.2-5.4) M/uL Hgb 12.9 (12.0-16.0) g/dL Hct 39.9 (37-47) % Plt Count 209 (130-400) K/uL Intake and Output 06/22/21 06/23/21 06/23/21 22:59 06:59 14:59 Intake Total 200 / 410.625 Balance 200 / 410.625 Intake: Oral 200 / 200 Other: # Unmeasured Voids 1 Diagnostic Findings EKG performed 06/22/21 post cath, no ST changes.
[2021-06-23 10:33] LABS: Albumin Globulin Ratio 1.4 (0.9-2); Albumin Level 4.2 gm/dl (3.4-5.0); BUN Creatinine Ratio 19.3 (10-20); Bilirubin,Total 0.9 mg/dl (0.2-1.0); Calcium 9.5 mg/dl (8.5-10.1); Creatinine Clr Calc Pharmacy 43.2 ml/min; Globulin 3.1 gm/dl (2.5-4.0); Potassium 3.9 mmol/L (3.5-5.1); Total Protein 7.3 gm/dl (6.0-8.3)
--- NOTE | 2021-06-23 11:07 | Communication Note ---
Date of Service: June 23, 2021 Renal function is within normal limits. Stable for Discharge. Already has cardio follow up visit on 07/13/21.
--- NOTE | 2021-06-23 12:04 | Discharge Summary ---
Date of Service June 23, 2021 Admission HPI Per Admitting Provider 75 yo F with recent exertional chest pain and abnormal dobutamine stress echocardiogram on 06/02/21 presents for elective heart catheterization. Although no stress induced wall motion abnormalities were observed, the EKG response was abnormal with [address] segment depression noted at peak stress. She has no known h/o CAD but has been on Lipitor 20mg for dyslipidemia prior to the onset of recent symptoms. She was recently seen in [facility] Cardiology clinic and additional medical therapy was added including metoprolol succinate 25mg daily, daily ASA 81mg, and an increase in her Lipitor to 40mg daily for goal LDL <70. She underwent a left heart cath with an attempt to pass through LAD lesion, however, this was unsuccessful with a microdissection that occurred as a result that was not hemodynamically significant. She remained chest pain free and is still asymptomatic. Principal Diagnosis Chronic total occlusion LAD Discharge Exam Patient appeared well. Denies chest pain or shortness of breath. No leg swelling. No bleeding at cath site All questions were answered Discharge Data Allergies Allergy/AdvReac Type Severity Reaction Status Date / Time blue dye Allergy Severe FACE Verified 06/22/21 07:30 SWELLING duloxetine Allergy Severe FACE Verified 06/22/21 07:30 SWELLING capsaicin AdvReac Intermediate 'affects Verified 06/22/21 07:41 my kidneys' per pt diclofenac AdvReac Intermediate 'affects Verified 06/22/21 07:41 my kidneys' per pt Diclopak AdvReac Intermediate 'affects Verified 03/25/17 05:05 my kidneys' per pt Consultations 06/22/21 14:10 Consult Hospitalist Routine Procedures Performed Operation Date: 06/22/21 08:00 Actual Procedures p Cineradiography w/Routine Exam - Les Knight, DO s Cath, Left with Cors and Vent - Les Knight, DO Ordered Studies 06/22/21 06:40 CL Cath Imgs for PACS use only Routine Hospital Course (1) CAD (coronary artery disease): (2) Osteoarthritis: (3) Hypothyroidism: (4) Dyslipidemia: (5) CKD (chronic kidney disease) stage 3, GFR 30-59 ml/min: (6) DVT prophylaxis: Ms Sindi Lorenzo is a 75 year old female with history of CAD, CKD stage 3, HTN, hypothyroidism and arthritis was admitted 06/22 after a failed cardiac catheterization. She had an abnormal outpatient stress test and subsequently underwent LHC. LHC discovered FISHER SWORDFISH of her LAD and PCI was unsuccessful. She was admitted for overnight observation on telemetry. Labwork (CBC, BMP) remained stable. Her medications were optimized and she was cleared by Cardiology for discharge the next day with follow up for second opinion for management of her obstructive LAD. Total Time Total Time Spent Total Time Spent (In Minutes): 35 Discharge Plan Discharge Items Patient Disposition: Home - Self-Care Reason For Visit: Exertional Angina Discharge Diagnosis: Chronic total occlusion LAD Condition on Discharge: Good Activity: As commented below Non-emergency contact: Primary Care Provider and Director Of Alumni Relations Call non-emergency contact if: you have any medication questions and your symptoms worsen Follow-up/Referrals: Glen Bardales MD [Primary Care Provider] - 06/29/21 11:20 am (Date & Time 06/29/2021 11:20 AM Provider Mainor Garcia MD Department Family Medicine [facility] ) Diet: Heart Healthy Add Attending Provider Instructions: ACTIVITY RECOMMENDATIONS: Excess manipulation of the wrist should be avoided for the next 24-48 hours. * No lifting over 2 pounds (approximately a 1/2 gallon of milk) with the utilized arm for 24 hours. * No strenuous activity such as bowling or tennis for 3 days. * Keep the site of the procedure covered with a bandage for 24 hours. *You may shower the day after the procedure. Do not take a tub bath or submerge the puncture site in water for the next 3 days. *Do not operate any motorized equipment for 3 days. SPECIAL CARE INSTRUCTIONS: The site may be slightly bruised and sore following your procedure. Should any of the following occur, contact the Dr. who performed your procedure. 1. Redness/inflammation, swelling, chills, or fever, or colored drainage at procedure site within 3-7 days after your procedure. 2. Coldness, discoloration, ongoing numbness, severe pain, or swelling. Expect mild tingling of hand and tenderness at the puncture site for up to three days. If this persists beyond three days, or other symptoms develop, notify the Dr. who performed your procedure. BLEEDING: If the procedure site on your wrist begins to bleed, do not panic 1. Place 1 or 2 fingers firmly just slightly above the insertion site to stop the bleeding. You may be able to feel your pulse as you hold pressure. 2. Lift your finger after 5 minutes to see if the bleeding has stopped. 3. Once the bleeding has stopped, gently wipe the wrist area clean with a bandage. * If the bleeding from your wrist does not stop after 10 minutes, or if there is a large amount of bleeding or spurting, call 911 (do not drive yourself to the hospital). SKIN IRRITATION: * You may experience some redness and/or swelling in the area where radiation was administered. If any skin irritation occurs, please contact your family physician. FOLLOW UP VISIT: Keep any scheduled doctor appointments. Pending Studies at Discharge: No Stand-Alone Forms: [facility], Work/School Release, Smoking Cessation Medications and DC Order Prescriptions: New metoprolol succinate 50 mg Tablet Extended Release 24 Hr 50 mg PO QAM 30 Days Qty: 30 RF: 1 amlodipine [Norvasc] 5 mg Tablet 5 mg PO QAM 30 Days Qty: 30 RF: 1 Continued acetaminophen [Tylenol Extra Strength] 500 mg Tablet 1,000 mg PO UD PRN (Reason: Pain) RF: 0 atorvastatin 20 mg Tablet 40 mg PO QAM RF: 0 ferrous sulfate 325 mg (65 mg iron) Tablet 325 mg PO QAM RF: 0 calcium carbonate [Tums] 200 mg calcium (500 mg) Tablet,Chewable 200 mg PO QID PRN (Reason: Indigestion) RF: 0 multivitamin Capsule 1 cap PO QAM RF: 0 levothyroxine 100 mcg Capsule 100 mcg PO QAM RF: 0 pantoprazole [Protonix] 20 mg Tablet,Delayed Release (Dr/Ec) 20 mg PO DAILY RF: 0 aspirin 81 mg Tablet 81 mg PO DAILY RF: 0 Discontinued metoprolol succinate [Toprol XL] 25 mg Tablet Extended Release 24 Hr 25 mg PO DAILY RF: 0 Discharge Orders: Discharge Order (Routine); Ordered 06/23/21 Ordered By: José Tavares Admission Data Admit Date/Time: 06/22/21 11:19 Attending Provider: José Tavares Admit Provider: Tylor Mckenzie Primary Care Provider: Glen Bardales Other Providers: Katie Coker ; Ge Foreman ; Georges Ny ; Fidelina Lui ; Shadia Eldridge ; Eda Cummins ; Troy Hutchinson ; Manuel Zendejas ; Abraham Huerta ; Elsie Edward ; Darrell Rivers ; Amina Newton ; Meryl Torres ; Se Quezada ; Kaitlin Gibbs ; Clara Yarbrough ; Stephanie Martinez ; Kezia Patel I. ; Rafita Flores ; Mainor Garcia ; Prieto Alanis ; José Tavares ; Clark Martin ; Arsh Devries ; Ebony Enamorado Other Interventions: Discharge Summary Assessment (RN) Last Done: 06/23/21 10:56
--- NOTE | 2021-06-23 17:54 | Electrocardiogram Report ---
Test Reason : Blood Pressure : / mmHG Vent. Rate : 064 BPM Atrial Rate : 064 BPM P-R Int : 182 ms QRS Dur : 082 ms QT Int : 412 ms P-R-T Axes : 052 000 023 degrees QTc Int : 425 ms Normal sinus rhythm When compared with ECG of 26-DEC-2017 10:45, No significant change was found Confirmed by Papa Gonsalves ([id number]) on 06/23/2021 5:54:20 PM Referred By: Jeremy Medina Confirmed By:Wicho Gonsalves
[2021-06-24] MEDS ORDERED: METOPROLOL SUCC 50MG EXT REL TAB PO SCH (09:00)
== END 2021-06-23 11:55 | disposition home or self-care (01) ==
LOC: 2E 06:59 → CC 06:59 → SUATTDRO 11:19

== ENCOUNTER 2023-04-20 06:47 | Observation (INO) ==
--- NOTE | 2023-04-20 07:21 | Emergency Department Note ---
History of Present Illness General Chief complaint: Weakness Stated complaint: WEAKNESS, N/V, CP Time Seen by Provider: 04/20/23 07:20 History of Present Illness This is a 77-year-old female that presents to the emergency department via private vehicle with complaints of "weakness, nausea vomiting, chest pain". 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 She then vomited x 1. She then developed central chest pain that lasted about 2 minutes in duration and then she got the sensation to vomit again and shortly after had resolution of pain. No history of CT but she does note known blockage in the heart. She follows with her PCP as well as [facility] cardiology. The patient denies any fevers or chills. No abdominal pain. No diarrhea. Patient denies any current symptoms and feels well at this time. Home Medications Medication Instructions Recorded Confirmed Type ferrous sulfate 325 mg (65 mg 325 mg PO [id number] 12/21/17 04/20/23 History iron) tablet aspirin 81 mg tablet 81 mg PO DAILY 06/22/21 04/20/23 History amlodipine 5 mg tablet (Norvasc) 5 mg PO QAM 30 days #30 tabs 06/23/21 04/20/23 Rx metoprolol succinate 50 mg 50 mg PO QAM 30 days #30 tabs 06/23/21 04/20/23 Rx tablet,extended release 24 hr atorvastatin 80 mg tablet 80 mg PO DAILY 04/20/23 04/20/23 History levothyroxine 88 mcg tablet 88 mcg PO DAILY 04/20/23 04/20/23 History pantoprazole 40 mg tablet,delayed 40 mg PO DAILY 04/20/23 04/20/23 History release Allergies Allergy/AdvReac Type Severity Reaction Status Date / Time blue dye Allergy Severe FACE Verified 06/22/21 07:30 SWELLING duloxetine Allergy Severe FACE Verified 06/22/21 07:30 SWELLING capsaicin AdvReac Intermediate 'affects Verified 06/22/21 07:41 my kidneys' per pt diclofenac AdvReac Intermediate 'affects Verified 06/22/21 07:41 my kidneys' per pt Diclopak AdvReac Intermediate 'affects Verified 03/25/17 05:05 my kidneys' per pt Past Med/Surg History Medical History (Updated 04/20/23 @ 16:19 by Devang Ruiz PA-C) Exertional angina DVT prophylaxis Deep vein thrombosis LLE - 03/2018 - [facility] - ON ELIQUIS - POST OP L KNEE REPLACEMENT Obesity Osteoarthritis GERD (gastroesophageal reflux disease) CONTROLLED History of superficial phlebitis S/P BRIANNE (2015) Dyslipidemia HTN (hypertension) Hypothyroidism Chronic anemia CKD (chronic kidney disease) stage 3, GFR 30-59 ml/min Surgical History History of cataract surgery History of total knee replacement - [facility] 01/2018 History of arthroscopy RIGHT KNEE History of esophagogastroduodenoscopy (EGD) History of colonoscopy History of hysterectomy History of total hip arthroplasty RIGHT BRIANNE= 01/13/2016= [facility] [place] AT [facility] H/O arthroscopy of knee "09/2002 Dr. 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: No Beliefs That Will Affect Care: None Current Living Situation: Alone current occupational status: employed Feels Safe at Home: Yes Safety Concerns: Feels Safe At This Time Assistive Devices: None Review of Systems A total of 10 systems reviewed and were otherwise negative Physical Exam Vital Signs Vital Signs - 24 hr 04/20/23 06:48 04/20/23 07:19 04/20/23 07:22 Temperature 36.4 C Temperature Source Oral Pulse Rate 86 79 Pulse Rhythm Regular Regular Pulse Strength Normal Respiratory Rate 16 20 Respiratory Effort / Characteristics Non-Labored Respiratory Depth Normal Respiratory Pattern Regular Blood Pressure 124/72 Blood Pressure Mean 89 Blood Pressure Position Sitting Pulse Oximetry 96 96 96 Oxygen Delivery Method Room Air Room Air Room Air Sepsis Recent Fever Within 48 Hours No Sepsis New/Unexplained Change in Mental Status No Sepsis Action Taken by Nursing No Action Required 04/20/23 08:06 Temperature Temperature Source Pulse Rate 75 Pulse Rhythm Pulse Strength Respiratory Rate Respiratory Effort / Characteristics Respiratory Depth Respiratory Pattern Blood Pressure Blood Pressure Mean Blood Pressure Position Pulse Oximetry Oxygen Delivery Method Sepsis Recent Fever Within 48 Hours Sepsis New/Unexplained Change in Mental Status Sepsis Action Taken by Nursing VITAL SIGNS - Vital signs and nursing notes were reviewed. Stable and afebrile. GENERAL -77-year-old female appearing her stated age who is in no acute distress. Communicates well with provider and answers questions appropriately. SKIN - Without rashes. No meningeal or petechial rash. HEAD - NC/AT. EYES - PERRL with EOMI bilaterally. Sclera anicteric. EARS - No deformities of external structures noted on gross examination bilaterally. NOSE - Midline and without cyanosis. No epistaxis or purulent drainage noted. MOUTH/OROPHARYNX - Without perioral cyanosis. NECK - Neck with FROM. No nuchal rigidity. LUNGS - Chest wall symmetric without accessory muscle use, intercostals retractions, or central cyanosis. Normal vesicular breath sounds CTA B/L. No wheezes, rales, or rhonchi appreciated. CARDIAC - RRR. No murmur, rubs, or gallops appreciated. ABDOMEN - Abdominal contour normal without pulsations or visible masses. BS normoactive all four quadrants. No tenderness, palpable masses, hepatosplenomegaly, or ascites noted. EXTREMITIES - No clubbing or peripheral cyanosis. +5/5 strength noted in UE/LE bilaterally. NEUROLOGIC - Cranial nerves II through XII grossly intact. PSYCH - A&Ox3 and cooperates fully with examiner. Pt is very pleasant and interacts well with examiner. Course Administered Medications Amlodipine Besylate (Amlodipine Besylate 5 Mg Tab) 5 mg PO QAM [facility] Stop: 05/20/23 11:59 Last Admin: 04/20/23 12:29 Dose: 5 mg Documented By: C[place]AND Atorvastatin Calcium (Atorvastatin 40 Mg Tab) 80 mg PO DAILY [facility] Stop: 05/20/23 11:59 Last Admin: 04/20/23 12:29 Dose: 80 mg Documented By: CLEVELAND Ceftriaxone Sodium 2,000 mg/ (Dextrose) 50 mls @ 100 mls/hr IV Q24H [facility]; Protocol Stop: 04/25/23 08:59 Last Infusion: 04/20/23 11:03 Dose: Infused Documented By: Admin: 04/20/23 10:16 Dose: 100 mls/hr Documented By: DAVID Levothyroxine Sodium (Levothyroxine Sodium 88 Mcg Tablet) 88 mcg PO DAILYBB [facility] Stop: 05/20/23 11:59 Last Admin: 04/20/23 12:29 Dose: 88 mcg Documented By: CLEVELAND Metoprolol Succinate (Metoprolol Succ 50mg Ext Rel Tab) 50 mg PO QAM [facility] Stop: 05/20/23 11:59 Last Admin: 04/20/23 12:29 Dose: 50 mg Documented By: CLEVELAND Discontinued Medications Lactated Ringer's (Lr) 500 mls @ 999 mls/hr IV .Q31M ONE Stop: 04/20/23 09:26 Last Infusion: 04/20/23 10:26 Dose: Infused Documented By: Admin: 04/20/23 09:23 Dose: 999 mls/hr Documented By: DAVID Medical Decision Making Laboratory Data 04/20/23 06:56 04/20/23 06:56 Lab Results 04/20/23 04/20/23 Range/Units 06:56 07:45 WBC 14.35 H (4.8-10.8) K/ul RBC 4.58 (4.20-5.40) M/uL Hgb 12.7 (12.0-16.0) g/dl Hct 40.6 (37.0-47.0) % MCV 88.6 (80.0-100.0) fL MCH 27.7 (25.0-34.0) pg MCHC 31.3 L (32.0-36.0) g/dL RDW Std Deviation 45.3 (36.4-46.3) fL RDW Coeff of Saida 14.1 (11.5-14.5) % Plt Count 260 (130-400) K/uL MPV 11.0 (9.4-12.4) fL Immature Gran % (Auto) 0.4 % Neut % (Auto) 75.5 % Lymph % (Auto) 15.1 % Howell % (Auto) 7.5 % Eos % (Auto) 1.0 % Baso % (Auto) 0.5 % Neut # (Auto) 10.84 H (1.40-6.50) K/uL Lymph # (Auto) 2.17 (1.20-3.40) K/uL Howell # (Auto) 1.07 H (0.11-0.59) K/uL Eos # (Auto) 0.14 (0.00-0.50) K/uL Baso # (Auto) 0.07 (0.00-0.20) K/uL Immature Gran # (Auto) 0.06 (0.01-0.20) K/uL PT 10.4 (9.0-12.0) Seconds INR 0.9 (0.9-1.1) APTT 22 (21-31) Seconds PTT Ratio 0.8 Sodium 140 (136-145) mmol/L Potassium 4.5 (3.5-5.1) mmol/L Chloride 103 (98-107) mmol/L Carbon Dioxide 26 (21-32) mmol/L Anion Gap 11 (3-11) BUN 37 H (6-23) mg/dl Creatinine 1.94 H (0.6-1.2) mg/dl Est Cr Clr Drug Dosing 27.3 ml/min Est GFR ( Amer) 27.8 ml/min Est GFR (Non-Af Amer) 24.0 ml/min BUN/Creatinine Ratio 19.1 (10-20) Glucose 104 H (70-99(Fasting)) mg/dl Calcium 9.9 (8.6-10.3) mg/dl Magnesium 2.0 (1.7-2.4) mg/dl Total Bilirubin 0.5 (0.2-1.0) mg/dl AST 19 (13-39) U/L ALT 15 (7-52) U/L Alkaline Phosphatase 90 (34-104) U/L Troponin I High Sens 3.1 (0-14) pg/ml Total Protein 7.9 (6.0-8.3) gm/dl Albumin 4.8 (3.4-5.0) gm/dl Globulin 3.1 (2.5-4.0) gm/dl Albumin/Globulin Ratio 1.5 (0.9-2) Lipase 63 (11-82) U/L TSH 1.838 (0.300-4.500) uIu/ml Urine Color Dark Yellow Urine Appearance Cloudy A (Clear) Urine pH 5.0 (4.5-7.5) Ur Specific [place] 1.024 (1.000-1.030) Urine Protein Negative (Negative) Urine Glucose (UA) Negative (Negative) Urine Ketones Trace H (Negative) Urine Blood Negative (Negative) Urine Nitrite Negative (Negative) Urine Bilirubin Negative (Negative) Urine Urobilinogen Negative (Negative) Ur Leukocyte Esterase 2+ H (Negative) Urine WBC (Auto) >30 H (0-5) /hpf Urine RBC (Auto) 0-4 (0-4) /hpf U Hyaline Cast (Auto) 10-30 H (0-5) /lpf U Epithel Cells (Auto) >30 H (0-5) /lpf Urine Bacteria (Auto) 1+ H (Negative) Imaging Data Radiologist's Impression: Chest X-Ray 04/20/23 07:21 SINGLE VIEW CHEST CLINICAL HISTORY: Atypical chest pain. FINDINGS: An AP, portable, upright chest radiograph is compared to study dated 12/26/2017. The heart is enlarged and noting atherosclerotic calcification of the thoracic aorta. The pulmonary vasculature is noncongested. Chronic interstitial thickening is similar to previous. There is mild bibasilar scarring/atelectasis. The lungs and pleural spaces are otherwise clear. No pneumothorax is seen. The skeletal structures are osteopenic. The bony thorax is grossly intact. Arthritic change is seen in the shoulders. IMPRESSION: Cardiomegaly with no active disease in the chest. ACT 112: Negative or not required by law. Electronically signed by: Nelson Gray M.D. 04/20/2023 8:37 AM MDM Narrative Patient was seen and evaluated as above in room A10. Review was performed of nursing notes and vital signs. I did review pertinent previous visits and patient history. After obtaining a thorough history and physical examination the above work up was performed. Patient presents to us today for evaluation of nausea that progressed to vomiting and then episode of chest pain that progressed to nausea and vomiting earlier today. She is well-appearing and nontoxic on examination. Her symptoms have resolved at this time. Per review of the EMR on 06/22/2021 patient reportedly had a positive stress test and CAD/angina prompting cardiac catheterization. Patient was found to have subtotal proximal to mid LAD occlusion with faint left to left collaterals. Decision was made to proceed with attempted PCI of LAD. Ultimately there was unsuccessful attempted PCI of proximal LAD chronic subtotal occlusion. Options of care were discussed with the patient. IV access was established. Labs were drawn. There is leukocytosis 14.35. No anemia noted. Coags are normal. There is elevation of the patient's creatinine beyond baseline at 1.94 with a BUN at 37 compared to previous in the EMR. Glucose 104. Troponin x 1 thus far is negative. Lipase normal. TSH reveals euthyroid state. Urinalysis reveals what is likely a contaminated sample revealing 2+ leukocytes, greater than 30 white blood cells, 0-4 reds, 10-30 hyaline casts, greater than 30 epithelial cells 1+ bacteria. Patient denies any urinary symptoms. Chest x-ray reveals cardiomegaly without active disease. EKG reveals normal sinus rhythm at a rate of 88 bpm. QTc 445. QRS 66. No ST elevation. The patient does have history of CAD. She did have chest pain earlier today. At this time noting the patient's comorbidities, I do believe that further evaluation and management in the inpatient setting is warranted. [facility]. Patient amenable to proceeding with inpatient management. Please refer to further documentation regarding her stay. 8:49 AM: I spoke with Dr. Dhillon of cardiology. We reviewed the patient's cardiac history and workup thus far. Case was discussed with the attending physician. GCS: 15 In the evaluation and treatment of this patient the following differential diagnoses were entertained: Dissection, CT, PE, pericarditis, costochondritis, pneumonia, bowel obstruction, gastritis, reflux/GERD, esophagitis, among others Impression & Plan Chest pain, MARK (acute kidney injury) Discharge Plan Visit Data Chief Complaint: Weakness Stated Complaint: WEAKNESS, N/V, CP ED Provider: Caroline Hsu ED Midlevel Provider: Devang Ruiz Discharge Problem: Chest pain, MARK (acute kidney injury) Patient Disposition: Admitted As Inpatient Condition: Good Discharge Instructions Interventions: ED Discharge Assessment Last Done: 04/20/23 11:04
[2023-04-20 07:40] LABS: Basophils # (auto) 0.07 K/uL (0.00-0.20); Basophils % (auto) 0.5 %; Eosinophils # (auto) 0.14 K/uL (0.00-0.50); Hematocrit (blood only) 40.6 % (37.0-47.0); Hemoglobin 12.7 g/dl (12.0-16.0); Immature Granulocytes # (auto) 0.06 K/uL (0.01-0.20); Immature Granulocytes % (auto) 0.4 %; Lymphocytes # (auto) 2.17 K/uL (1.20-3.40); Lymphocytes % (auto) 15.1 %; Mean Corpuscular Hemoglobin 27.7 pg (25.0-34.0); Mean Corpuscular Hgb Conc 31.3 g/dL (32.0-36.0); Mean Corpuscular Volume 88.6 fL (80.0-100.0); Monocytes # (auto) 1.07 K/uL (0.11-0.59); Monocytes % (auto) 7.5 %; Neutrophils # (auto) 10.84 K/uL (1.40-6.50); Neutrophils % (auto) 75.5 %; Platelet Count 260 K/uL (130-400); RDW Coefficient of Variation 14.1 % (11.5-14.5); RDW Standard Deviation 45.3 fL (36.4-46.3); Red Blood Count 4.58 M/uL (4.20-5.40); White Blood Count 14.35 K/ul (4.8-10.8)
[2023-04-20 07:57] LABS: Albumin Globulin Ratio 1.5 (0.9-2); Albumin Level 4.8 gm/dl (3.4-5.0); BUN Creatinine Ratio 19.1 (10-20); Bilirubin,Total 0.5 mg/dl (0.2-1.0); Calcium 9.9 mg/dl (8.6-10.3); Creatinine Clr Calc Pharmacy 27.3 ml/min; Est GFR (African American) 27.8 ml/min; Globulin 3.1 gm/dl (2.5-4.0); Potassium 4.5 mmol/L (3.5-5.1); Total Protein 7.9 gm/dl (6.0-8.3)
[2023-04-20 08:03] LABS: Troponin I High Sensitivity 3.1 pg/ml (0-14)
[2023-04-20 08:04] LABS: Appearance Urine Cloudy (Clear); Bacteria Urine Automated 1+ (Negative); Bilirubin Urine Negative (Negative); Blood Urine Negative (Negative); Color Urine Dark Yellow; Epithelial Cell Urine Auto >30 /lpf (0-5); Glucose Urine UA Negative (Negative); Ketones Urine Trace (Negative); Leukocyte Esterase Urine 2+ (Negative); Nitrite Urine Negative (Negative); Protein Urine Negative (Negative); RBC Urine Automated 0-4 /hpf (0-4); Specific Gravity Urine 1.024 (1.000-1.030); Urobilinogen Urine Negative (Negative); WBC Urine Automated >30 /hpf (0-5)
[2023-04-20 08:05] LABS: INR 0.9 (0.9-1.1); Partial Thromboplastin Ratio 0.8; Partial Thromboplastin Time 22 Seconds (21-31); Prothrombin Time 10.4 Seconds (9.0-12.0)
[2023-04-20 08:12] LABS: Thyroid Stimulating Hormone 1.838 uIu/ml (0.300-4.500)
--- NOTE | 2023-04-20 08:38 | XRay Report ---
SINGLE VIEW CHEST CLINICAL HISTORY: Atypical chest pain. FINDINGS: An AP, portable, upright chest radiograph is compared to study dated 12/26/2017. The heart is enlarged and noting atherosclerotic calcification of the thoracic aorta. The pulmonary vasculature is noncongested. Chronic interstitial thickening is similar to previous. There is mild bibasilar sca rring/atelectasis. The lungs and pleural spaces are otherwise clear. No pneumothorax is seen. The ske letal structures are osteopenic. The bony thorax is grossly intact. Arthritic change is seen in the s houlders. IMPRESSION: Cardiomegaly with no active disease in the chest. ACT 112: Negative or not required by law. Electronically signed by: Nelson Gray M.D. 04/20/2023 8:37 AM
--- NOTE | 2023-04-20 09:09 | History & Physical Report ---
Date of Service April 20, 2023 Assessment & Plan (1) Chest pain: Plan: This is a 77 y/o female with history of CAD, HTN, CKD3, hypothyroidism, post- operative DVT, and GERD who presented to the ED early this morning with episode of nausea, vomiting, and chest pain. Currently, pt's symptoms seem to be resolved and initial work-up in the ED was negative with normal troponin and no EKG changes. However, pt has a history of subtotal occlusion of LAD with unsuc cessful PCI attempt so she was referred for observation to rule out cardiac etiology of symptoms. Description of her symptoms could also be consistent with acid reflux - Observe in PCU overnight - Trend troponin - Check ECHO - Repeat EKG in the AM and with any recurrent episodes of pain - Increase PPI to BID for now (2) UTI (urinary tract infection): Plan: Continue Rocephin 2 g daily for now pending culture Once culture available, will change antibiotics to oral to complete the course (3) MARK (acute kidney injury): Plan: Likely related to dehydration and UTI Will give a liter of LR, encourage oral intake Recheck BMP in the AM (4) Hypothyroidism: Plan: Chronic, stable - normal TSH today Continue same dose of levothyroxine (5) HTN (hypertension): Plan: Chronic, stable Continue amlodipine, metoprolol (6) Dyslipidemia: Plan: Chronic, stable Continue statin therapy (7) CAD (coronary artery disease): Plan: See plan for #1 Plan Pt seen and reviewed with attending physician, Dr. Martinez. Plan of care discussed and as outlined above. Code Status: Full code DVT Prophylaxis: David Lui PA-C History of Present Illness Chief Complaint: Chest pain, N/V Primary Care Provider: NO PCP This is a 77 y/o female with history of CAD, HTN, CKD3, hypothyroidism, post- operative DVT, and GERD who presented to the ED early this morning with episode of nausea, vomiting, and chest pain. 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 A few minutes later, she developed substernal chest discomfort with recurrent nausea, again had episode of emesis and felt better. Associated diaphoresis but no palpitations or dyspnea. Chest discomfort did not radiate. Denies similar chest discomfort previously. She notes an episode 7-10 days when she had nausea and vomited x 1 when she got up in the morning, had eaten chicken noodle soup for dinner the evening prior but noted nothing unusual. No issues with vomiting before then. She does have a history of acid reflux, which she reports has been well-controlled on pantoprazole 40 mg daily. Over the last two days, she has noted dark urine but had attributed to not drinking enough water while working. Denies urinary frequency but instead has noted decreased urine output. Denies dysuria, lower back pain, fevers, or chills. Has had some increased fatigue from baseline over the last 2-3 weeks. No dyspnea or orthopnea. No diarrhea or constipation. She was admitted in June 2021 after undergoing a left heart cath due to abnor mal dobutamine stress echo. The patient was found to have a long area of subtotal stenosis ini the proximal to mid LAD. PCI to the area was attempted unsuccessfully. Pt was recommended to trial intensified medical therapy, and she reports that she has done well on her current regimen of cardiac meds. Allergies Allergy/AdvReac Type Severity Reaction Status Date / Time blue dye Allergy Severe FACE Verified 06/22/21 07:30 SWELLING duloxetine Allergy Severe FACE Verified 06/22/21 07:30 SWELLING capsaicin AdvReac Intermediate 'affects Verified 06/22/21 07:41 my kidneys' per pt diclofenac AdvReac Intermediate 'affects Verified 06/22/21 07:41 my kidneys' per pt Diclopak AdvReac Intermediate 'affects Verified 03/25/17 05:05 my kidneys' per pt Home Medications Medication Instructions Recorded Confirmed Type ferrous sulfate 325 mg (65 mg 325 mg PO 4XWK 12/21/17 04/20/23 History iron) tablet aspirin 81 mg tablet 81 mg PO DAILY 06/22/21 04/20/23 History amlodipine 5 mg tablet (Norvasc) 5 mg PO QAM 30 days #30 tabs 06/23/21 04/20/23 Rx metoprolol succinate 50 mg 50 mg PO QAM 30 days #30 tabs 06/23/21 04/20/23 Rx tablet,extended release 24 hr atorvastatin 80 mg tablet 80 mg PO DAILY 04/20/23 04/20/23 History levothyroxine 88 mcg tablet 88 mcg PO DAILY 04/20/23 04/20/23 History pantoprazole 40 mg tablet,delayed 40 mg PO DAILY 04/20/23 04/20/23 History release Past Med/Surg History Medical History (Updated 04/20/23 @ 16:19 by Devang Ruiz PA-C) Exertional angina DVT prophylaxis Deep vein thrombosis LLE - 03/2018 - [facility] - ON ELIQUIS - POST OP L KNEE REPLACEMENT Obesity Osteoarthritis GERD (gastroesophageal reflux disease) CONTROLLED History of superficial phlebitis S/P BRIANNE (2015) Dyslipidemia HTN (hypertension) Hypothyroidism Chronic anemia CKD (chronic kidney disease) stage 3, GFR 30-59 ml/min Surgical History History of cataract surgery History of total knee replacement - [facility] 01/2018 History of arthroscopy RIGHT KNEE History of esophagogastroduodenoscopy (EGD) History of colonoscopy History of hysterectomy History of total hip arthroplasty RIGHT BRIANNE= 01/13/2016= SAB X1 AT [facility] H/O arthroscopy of knee "09/2002 Dr. Hobson" History of total hysterectomy Family History Other History of superficial phlebitis Social History (Updated 04/20/23 @ 09:07 by Fidelina Lui PA-C) Smoking Status: Never smoker Second Hand Exposure: No; Do You Dip or Chew Tobacco: No; Tobacco Cessation Education Requested by Patient: No Hx Alcohol Use: Yes Alcohol type: beer Hx Substance Use: No Preferred Language: [place] Communication Ability: Effective Visual Impairment: No Limitations Radial Router Operator Required: No Beliefs That Will Affect Care: None Current Living Situation: Alone current occupational status: employed Feels Safe at Home: Yes Safety Concerns: Feels Safe At This Time Assistive Devices: None Review of Systems Review of Systems: All systems reviewed & are unremarkable except as noted in HPI & below Constitutional: no fever and no chills Eyes: no diplopia and no worsening vision Ear, Nose, Mouth, Throat: no nasal congestion and no sore throat Respiratory: no cough and no dyspnea Cardiovascular: + chest pain; no orthopnea, no palpitati ons and no syncope Gastrointestinal: as per Subjective / HPI Genitourinary: as per Subjective / HPI Musculoskeletal: no back pain and no neck pain Integumentary: no rash and no yellowing of the skin Neurologic: no seizure-like activity, no dizziness and no headache(s) Physical Exam Physical Exam: General: awake, alert, NAD HEENT: no scleral icterus, moist oral mucosa Neck: trachea midline Heart: RRR Lungs: CTA bilaterally Abdomen: soft, NT, +BS Extremities: no pedal edema Skin: no jaundice Neurologic: oriented x 3, moving all extremities, no focal deficits. Results & Data Results & Data Vital Signs (Past 12 Hours) Vital Signs Temp Pulse Resp BP Pulse Ox O2 Del Method 04/20/23 08:06 75 04/20/23 07:22 79 20 96 Room Air 04/20/23 07:19 96 Room Air 04/20/23 06:48 36.4 C 86 16 124/72 96 Room Air Laboratory Results Laboratory Results - last 24 hr 04/20/23 04/20/23 06:56 07:45 WBC 14.35 H RBC 4.58 Hgb 12.7 Hct 40.6 MCV 88.6 MCH 27.7 MCHC 31.3 L RDW Std Deviation 45.3 RDW Coeff of [place] 14.1 Plt Count 260 MPV 11.0 Immature Gran % (Auto) 0.4 Neut % (Auto) 75.5 Lymph % (Auto) 15.1 [place] % (Auto) 7.5 Eos % (Auto) 1.0 Baso % (Auto) 0.5 Neut # (Auto) 10.84 H Lymph # (Auto) 2.17 [place] # (Auto) 1.07 H Eos # (Auto) 0.14 Baso # (Auto) 0.07 Immature Gran # (Auto) 0.06 PT 10.4 INR 0.9 APTT 22 PTT Ratio 0.8 Sodium 140 Potassium 4.5 Chloride 103 Carbon Dioxide 26 Anion Gap 11 BUN 37 H Creatinine 1.94 H Est Cr Clr Drug Dosing 27.3 Est GFR ( Amer) 27.8 Est GFR (Non-Af Amer) 24.0 BUN/Creatinine Ratio 19.1 Glucose 104 H Calcium 9.9 Magnesium 2.0 Total Bilirubin 0.5 AST 19 ALT 15 Alkaline Phosphatase 90 Troponin I High Sens 3.1 Total Protein 7.9 Albumin 4.8 Globulin 3.1 Albumin/Globulin Ratio 1.5 Lipase 63 TSH 1.838 Urine Color Dark Yellow Urine Appearance Cloudy A Urine pH 5.0 Ur Specific [place] 1.024 Urine Protein Negative Urine Glucose (UA) Negative Urine Ketones Trace H Urine Blood Negative Urine Nitrite Negative Urine Bilirubin Negative Urine Urobilinogen Negative Ur Leukocyte Esterase 2+ H Urine WBC (Auto) >30 H Urine RBC (Auto) 0-4 U Hyaline Cast (Auto) 10-30 H U Epithel Cells (Auto) >30 H Urine Bacteria (Auto) 1+ H Diagnostic Findings Chest X-Ray 04/20/23 07:21 SINGLE VIEW CHEST CLINICAL HISTORY: Atypical chest pain. FINDINGS: An AP, portable, upright chest radiograph is compared to study dated 12/26/2017. The heart is enlarged and noting atherosclerotic calcification of the thoracic aorta. The pulmonary vasculature is noncongested. Chronic interstitial thickening is similar to previous. There is mild bibasilar scarring/atelectasis. The lungs and pleural spaces are otherwise clear. No pneumothorax is seen. The skeletal structures are osteopenic. The bony thorax is grossly intact. Arthritic change is seen in the shoulders. IMPRESSION: Cardiomegaly with no active disease in the chest. ACT 112: Negative or not required by law. Electronically signed by: Nelson Gray M.D. 04/20/2023 8:37 AM Supervising Physician Co-Signing Physician Notes I have seen and discussed the case with the collaborating TOYIN. I agree with the above H&P. I have reviewed and confirmed the patients medical history, the findings on physical examination, and the patients diagnosis and treatment plan with Sania DEAL and agree with the information documented. In short, Ms. Lorenzo is a 77 year old woman with past history of CAD, HTN, CKD3, hypothyroidism, post-operative DVT, and GERD who presented to the ED 04/20 with episode of nausea, vomiting, and chest pain. Symptoms resolved. EKG stable. ECHO reviewed and without wall motion abnormality. Troponin negative x 2. UA suspicious for infection. MARK with Cr. to 1.94. Patient admitted for ACS r/o, eval and management of MARK, and abx for UTI. Physical Exam Constitutional AOx4, pleasant CV RRR, no murmurs RESP CTABL GI soft NTND Ext no edema, strength 5/5 #MARK likely 2/2 dehydration and UTI -Gentle IVF -Treat infection as below -Avoid nephrotoxic -Repeat BMP in am #Acute uncomplicated cystitis -UA suspicious for infection -CTX -Follow culture #Chest pain, suspect noncardiac -EKG w/out ischemia, ECHO without wall motion -Pain relieved with vomiting -?GERD, reflux--noted nausea in am on multiple occasions -Increase PPI BID Rest of plan as above I have reviewed the advanced practitioner's documentation, and I agree with, and take responsibility for the plan of care I spent a total of 35 minutes coordinating, documenting, and providing care for this patient excluding time spent in the performance of separately billed services. All of the aforementioned completed outside of collaborating with the assigned physician clinical laboratory assistant for a full treatment plan.. (1) Chest pain Chest pain type: unspecified Qualified Code(s): R07.9 - Chest pain, unspecified (2) UTI (urinary tract infection) Hematuria presence: without hematuria Urinary tract infection type: acute cystitis Qualified Code(s): N30.00 - Acute cystitis without hematuria (4) Hypothyroidism Hypothyroidism type: unspecified Qualified Code(s): E03.9 - Hypothyroidism, unspecified (5) HTN (hypertension) Hypertension type: primary hypertension Qualified Code(s): I10 - Essential (primary) hypertension (7) CAD (coronary artery disease) Associated angina: unspecified whether angina present Coronary Disease- Associated Artery/Lesion type: [place] artery [place] vs. transplanted heart: [place] heart Qualified Code(s): I25.10 - Atherosclerotic heart disease of [place] coronary artery without angina pectoris
[2023-04-20] MEDS: LACTATED RINGER'S 500 ML IV ONE (09:23)
[2023-04-20] MEDS: cefTRIAXone SODIUM 2,000 MG in DEXTROSE 5 % MINI-B 50 ML IV SCH (10:16)
[2023-04-20] MEDS ORDERED: NITROGLYCERIN SL 0.4 MG/TAB TAB SL PRN (11:38)
--- NOTE | 2023-04-20 11:50 | Electrocardiogram Report ---
Test Reason : Blood Pressure : / mmHG Vent. Rate : 088 BPM Atrial Rate : 088 BPM P-R Int : 166 ms QRS Dur : 066 ms QT Int : 368 ms P-R-T Axes : 050 008 026 degrees QTc Int : 445 ms Normal sinus rhythm Normal ECG When compared with ECG of 22-JUN-2021 13:07, No significant change was found Confirmed by Uday Pagan ([id number]) on 04/20/2023 11:50:39 AM Referred By: REFERRED SELF Confirmed By:Uday Pagan
[2023-04-20] MEDS: amLODIPine BESYLATE 5 MG TAB PO SCH (12:29)
[2023-04-20] MEDS: METOPROLOL SUCC 50MG EXT REL TAB PO SCH (12:29)
[2023-04-20] MEDS: LEVOTHYROXINE SODIUM 88 MCG TABLET PO SCH (12:29)
[2023-04-20] MEDS: ATORVASTATIN 40 MG TAB PO SCH (12:29)
[2023-04-20] MEDS: PANTOprazole 40 MG TAB PO SCH (21:40)
[2023-04-21 08:04] LABS: Basophils # (auto) 0.03 K/uL (0.00-0.20); Basophils % (auto) 0.4 %; Eosinophils % (auto) 2.8 %; Hemoglobin 10.7 g/dl (12.0-16.0); Immature Granulocytes # (auto) 0.02 K/uL (0.01-0.20); Immature Granulocytes % (auto) 0.3 %; Lymphocytes # (auto) 2.61 K/uL (1.20-3.40); Lymphocytes % (auto) 36.8 %; Mean Corpuscular Hgb Conc 31.5 g/dL (32.0-36.0); Mean Platelet Volume 10.8 fL (9.4-12.4); Monocytes # (auto) 0.51 K/uL (0.11-0.59); Monocytes % (auto) 7.2 %; Neutrophils # (auto) 3.72 K/uL (1.40-6.50); Neutrophils % (auto) 52.5 %; Platelet Count 203 K/uL (130-400); RDW Coefficient of Variation 14.2 % (11.5-14.5); RDW Standard Deviation 46.4 fL (36.4-46.3); Red Blood Count 3.82 M/uL (4.20-5.40); White Blood Count 7.09 K/ul (4.8-10.8)
[2023-04-21 08:05] LABS: BUN Creatinine Ratio 23.8 (10-20); Calcium 9.2 mg/dl (8.6-10.3); Creatinine Clr Calc Pharmacy 39.9 ml/min; Est GFR (African American) 46.9 ml/min; Est GFR (Non-African American) 40.5 ml/min; Potassium 4.3 mmol/L (3.5-5.1)
[2023-04-21] MEDS: ENOXAPARIN INJ 40 MG/0.4 ML SYR SQ SCH (08:05)
[2023-04-21] MEDS: ASPIRIN 81 MG ECTAB PO SCH (08:08)
[2023-04-21] MEDS: LACTATED RINGER'S 500 ML IV ONE (08:39)
--- NOTE | 2023-04-21 12:58 | Discharge Summary ---
Discharge Summary Date of Service April 21, 2023 Notes For Next Care Provider Repeat BMP in 2-3 weeks Medication Changes From Visit Macrobid 100mg BID x 3 days Pantoprazole 40mg BID with instruction to follow up with PCP/GI Admission HPI Per Admitting Provider This is a 77 y/o female with history of CAD, HTN, CKD3, hypothyroidism, post- operative DVT, and GERD who presented to the ED early this morning with episode of nausea, vomiting, and chest pain. 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 A few minutes later, she developed substernal chest discomfort with recurrent nausea, again had episode of emesis and felt better. Associated diaphoresis but no palpitations or dyspnea. Chest discomfort did not radiate. Denies similar chest discomfort previously. She notes an episode 7-10 days when she had nausea and vomited x 1 when she got up in the morning, had eaten chicken noodle soup for dinner the evening prior but noted nothing unusual. No issues with vomiting before then. She does have a history of acid reflux, which she reports has been well-controlled on pantoprazole 40 mg daily. Over the last two days, she has noted dark urine but had attributed to not drinking enough water while working. Denies urinary frequency but instead has noted decreased urine output. Denies dysuria, lower back pain, fevers, or chills. Has had some increased fatigue from baseline over the last 2-3 weeks. No dyspnea or orthopnea. No diarrhea or constipation. She was admitted in June 2021 after undergoing a left heart cath due to abnormal dobutamine stress echo. The patient was found to have a long area of subtotal stenosis ini the proximal to mid LAD. PCI to the area was attempted unsuccessfully. Pt was recommended to trial intensified medical therapy, and she reports that she has done well on her current regimen of cardiac meds. Admission Exam Per Admitting Provider General: awake, alert, NAD HEENT: no scleral icterus, moist oral mucosa Neck: trachea midline Heart: RRR Lungs: CTA bilaterally Abdomen: soft, NT, +BS Extremities: no pedal edema Skin: no jaundice Neurologic: oriented x 3, moving all extremities, no focal deficits. Principal Dx & Hospital Course #1 = Principal Diagnosis (1) Chest pain: (2) UTI (urinary tract infection): (3) MARK (acute kidney injury): (4) Hypothyroidism: (5) HTN (hypertension): (6) Dyslipidemia: (7) CAD (coronary artery disease): Plan Ms. Lorenzo is a 77 year old woman with past history of CAD, HTN, CKD3, hypothyroidism, post-operative DVT, and GERD who presented to the ED 04/20 with episode of nausea, vomiting, and chest pain. Symptoms resolved. EKG stable. ECHO reviewed and without wall motion abnormality. Troponin negative x 2. UA suspicious for infection. MARK with Cr. to 1.94. After overnight montioring, chest pain was less like related to ACS given nonischemic ekg, atypical symptoms, and resolution with vomiting. Patient discharged with abx for UTI and increased PPI. #MARK *improved likely 2/2 dehydration and UTI -downtrended with gentle fluid bolus and PO hydration -questionable UA as below -Encourage follow up with PCP for repeat BMP #Acute uncomplicated cystitis -UA suspicious for infection -Culture with mixed lucila -Macrobid 100mg BID x 3 days for total 5 day course #Chest pain, suspect noncardiac -EKG w/out ischemia, ECHO without wall motion abnormalities -Pain relieved with vomiting, worse in mornings -Recommended increased PPI BID, avoiding heavy meals, waiting 1-2 hours before sleep after dinner #hypothyroidism Chronic, stable - normal TSH today Continue same dose of levothyroxine #CAD #Hypertension Chronic, stable Continue amlodipine, metoprolol #HLD Chronic, stable Continue statin therapy On day of discharge, patient was pain free, eager to get home and denied any new concerns. Discharge Exam Constitutional WD/WN, vitals as above Respiratory normal respiratory effort, lungs clear to auscultation Cardiovascular RRR, no murmur, no edema Gastrointestinal (Abdomen) normal bowel sounds, soft, nontender, no hepatosplenomegaly Musculoskeletal no cyanosis or clubbing, extremities motor strength 5/5 Updated Medication List Medication Instructions Recorded Confirmed Type ferrous sulfate 325 mg (65 mg 325 mg PO 4XWK 12/21/17 04/20/23 History iron) tablet aspirin 81 mg tablet 81 mg PO DAILY 06/22/21 04/20/23 History amlodipine 5 mg tablet (Norvasc) 5 mg PO QAM 30 days #30 tabs 06/23/21 04/20/23 Rx metoprolol succinate 50 mg 50 mg PO QAM 30 days #30 tabs 06/23/21 04/20/23 Rx tablet,extended release 24 hr atorvastatin 80 mg tablet 80 mg PO DAILY 04/20/23 04/20/23 History levothyroxine 88 mcg tablet 88 mcg PO DAILY 04/20/23 04/20/23 History nitrofurantoin macrocrystal 100 mg 100 mg PO BID 3 days #6 caps 04/21/23 Rx capsule pantoprazole 40 mg tablet,delayed 40 mg PO BID #60 tabs 04/21/23 Rx release Hospital Stay Data Consultations 04/20/23 08:53 ED Decision to Admit Stat Pending Results Patient Have Any Pending Studies at Discharge: No Discharge Instructions Given to Patient (Per Discharging Provider) You were admitted for concerns of nausea and chest pain. You did not show signs of heart damage or concerns for ischemia/heart attack. It was recommended you prioritize hydration. It was also noted that you had urine suspicious for infection. You will go home with a short course of antibiotic- Macrobid 100mg, 1 tablet every 12 hours for 3 days starting tomorrow (04/22) in the morning Please increase your protonix/pantoprazole to twice a day given reported reflux symptoms and please follow up with your PCP for repeat lab work in 1-2 weeks Total Time Total Time Spent Total Time Spent (In Minutes): 45
--- NOTE | 2023-04-21 14:18 | Emergency Department Note ---
ED Visit Note I agree with the diagnosis and management decisions and have been personally involved in the case. Patient was admitted due to chest pain and previous cardiac history. Please see Devang Ruiz PA-C's notes for further details of the history, physical and visit. .
--- NOTE | 2023-04-21 18:14 | Electrocardiogram Report ---
Test Reason : Blood Pressure : / mmHG Vent. Rate : 068 BPM Atrial Rate : 068 BPM P-R Int : 192 ms QRS Dur : 078 ms QT Int : 428 ms P-R-T Axes : 045 018 030 degrees QTc Int : 455 ms Normal sinus rhythm Normal ECG When compared with ECG of 20-APR-2023 06:52, No significant change was found Confirmed by Scott Mantilla ([id number]) on 04/21/2023 6:13:45 PM Referred By: REFERRED SELF Confirmed By:Scott Mantilla
== END 2023-04-21 15:21 | disposition home or self-care (01) ==
LOC: ED 06:47 → 2S 06:47